=== PATIENT | female | born 1990 | race African-American/Black ===

== ENCOUNTER 2016-11-29 14:40 | Emergency (ER) | payer MEDICARE, OTHER ==
[~2016-11-29] VITALS: Ht 165.1 cm; Wt 70.0 kg
[~2016-11-29 14:40] MED LIST: IBUP-232 PO; PREN1CAP7 PO
[2016-11-29 14:42] VITALS: BP 124/70; PULSE 84; RESP 16; TEMP 98.2; O2SAT 95
[2016-11-29] MEDS ORDERED: LIDOCAINE 1%/EPINEPHrine 1:100,000 SOLN 20 ML VIAL INFIL ONE (15:45)
--- NOTE | 2016-11-29 16:30 | PD ---
HPI Chief Complaint: Foreign Body Time Seen by Provider: 15:28 Travel History International Travel<30 days: No Contact w/Intl Traveler<30days: No Traveled to known affect area: No History of Present Illness HPI 26-year-old female presents to the emergency room for evaluation of retained dermal piercing since this morning. Patient got her right lower abdominal wall pierced about 5 years ago and has had no problems until today. States it is irritating her and when she looked down she realized that the entire piercing had gone under her skin. She took off the outer portion but the packing remained inside her skin. Patient tried to remove it herself but was unable to. She came into have it removed because she is afraid it'll get infected. PFSH Past Medical History Diabetes: Yes (BORDERLINE ) Diminished Hearing: No Immunizations Current: Yes ?: Not : 2 Para: 0 Miscarriage: 1 Dilation and Curettage (D&C): Yes Past Surgical History Gynecologic Surgery: Yes (d & c ) Social History Alcohol Use: Yes (OCC) Tobacco Use: Yes (PPD) Substance Use: No Allergies-Medications (Allergen,Severity, Reaction): Coded Allergies: Latex (Verified Allergy, Mild, Rash, 11/29/16) Ultram (Verified Adverse Reaction, Intermediate, 11/29/16) Reported Meds & Prescriptions Reported Meds & Active Scripts Active Ibuprofen 600 Mg Tab 600 Mg PO TID PRN Citranatal Ball ( W/O Vit A W/ Fe Fumar) 27-1-260 Mg Cap 1 Cap PO DAILY Review of Systems Except as stated in HPI: all other systems reviewed are Neg Physical Exam Narrative GENERAL: Well-nourished, well-developed female in no acute distress. Afebrile. Ambulatory. SKIN: Warm and dry. There is a dermal piercing in the right lower anterior wall that is just below the skin. It is palpable. No evidence of infection. HEAD: Normocephalic. EYES: No scleral icterus. No injection or drainage. NECK: Supple, trachea midline. No JVD or lymphadenopathy. Data Data Last Documented VS Vital Signs Date Time Temp Pulse Resp B/P Pulse Ox O2 Delivery O2 Flow Rate FiO2 11/29/16 14:42 98.2 84 16 124/70 95 Room Air Orders Lidocai-Epi 1%-1:100,000 Inj (Xylocaine- (11/29/16 15:45) MDM Medical Decision Making Medical Screen Exam Complete: Yes Emergency Medical Condition: Yes Medical Record Reviewed: Yes Differential Diagnosis Foreign body versus piercing complication versus infection Narrative Course 26-year-old female presents to the emergency room for evaluation of retained foreign body in her right lower abdominal wall. Patient has had a dermal piercing there for 6 years but began to irritate her today. Came in to have it removed. Physical exam reveals dermal piercing back in the right lower anterior wall that is just below the skin. It is palpable. No evidence of infection. Foreign body was removed without difficulty. Wound was approximated with Steri-Strips. Patient told to follow up with PCP or return for worsening symptoms. He understands and agrees to plan. Procedures Procedure Narrative Foreign body removal: Patient given risks and benefits and told that procedure will cause a scar. She agreed to proceed. The area was prepped with Betadine. A subcutaneous wheal of 1% lidocaine with epinephrine with a total number 3 mL was used to anesthetize the area properly. A number 11 scalpel was used to make a 1 cm incision across the foreign body. It was grabbed and removed after some manipulation. Sterile dressing applied. Diagnosis Primary Impression: OTH FOREIGN BODY OR OBJECT ENTERING THROUGH SKIN, INIT Referrals: Primary Care Physician Patient Instructions: General Instructions, Soft Tissue Foreign Body (ED) Departure Forms: Tests/Procedures, Work Release Enter return to work date: Nov 30, 2016 Additional Instructions: Rest and drink plenty of fluids. Keep wound clean and dry. Take ibuprofen with food as directed, as needed for pain. Follow-up with a primary care physician. Return to the emergency room for worsening symptoms. Disposition: 01 DISCHARGE HOME Condition: Stable Rosetta Posada Nov 29, 2016 16:30
[2017-04-06] MEDS ORDERED: PROM12.54 PO (10:33)
[2017-05-18] MEDS ORDERED: TERC0.4C2 VAGINAL (15:21)
[2017-05-18] MEDS ORDERED: MICO1CRE2 VAGINAL (16:07)
== END 2016-11-29 16:40 | disposition home or self-care (01) ==
LOC: NEPB 14:40
DX: S30.851A Superficial foreign body of abdominal wall, initial encounter (principal); X58.XXXA Exposure to other specified factors, initial encounter
CPT/HCPCS: 10120

== ENCOUNTER 2016-12-14 08:11 | Emergency (ER) | payer MEDICARE, OTHER ==
[~2016-12-14] VITALS: Ht 165.1 cm; Wt 70.0 kg
[2016-12-14 08:15] VITALS: BP 118/75; PULSE 68; RESP 18; TEMP 97.8; O2SAT 99
[2016-12-14] MEDS ORDERED: SODIUM CHLOR 0.9% 1000 ML INJ 1,000 ML IV ONE (08:45)
[2016-12-14] MEDS ORDERED: ONDANSETRON HCL 4 MG/2 ML VIAL IV ONE (08:45)
[2016-12-14] MEDS ORDERED: ZOFR4TAB3 SL (09:06)
--- NOTE | 2016-12-14 09:06 | PD ---
HPI Chief Complaint: GI Complaint Time Seen by Provider: 08:31 Travel History International Travel<30 days: No Contact w/Intl Traveler<30days: No Traveled to known affect area: No History of Present Illness HPI 26 old woman presents to the emergency room complaining of nausea vomiting for the past 4 days. She'll set she feels lightheaded. She states she hears "static in my ears". Just states and vomiting she feels like her throat is swelling and closing up. No abdominal pain. No history of abdominal surgeries. Her last menstrual cycle was November 18. No definite sick contacts. 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 She wonders if that may be related. No other complaints. History Past Medical History Medical History: Denies Significant Hx Influenza Vaccination: Yes : 2 Para: 0 Dilation and Curettage (D&C): Yes Social History Alcohol Use: Yes (OCC) Tobacco Use: Yes (PP/3 days) Allergies-Medications (Allergen,Severity, Reaction): Coded Allergies: Latex (Verified Allergy, Mild, Rash, 12/14/16) Ultram (Verified Adverse Reaction, Intermediate, 12/14/16) Reported Meds & Prescriptions Reported Meds & Active Scripts Active Zofran Odt (Ondansetron Odt) 4 Mg Tab 4 Mg SL Q8HR PRN May substitute non-ODT form. Review of Systems Except as stated in HPI: all other systems reviewed are Neg Physical Exam Narrative GENERAL: Well-appearing 26 old woman, no acute distress. SKIN: Warm and dry. HEAD: Atraumatic. Normocephalic. HEENT: Normal throat. Normal neck. CARDIOVASCULAR: Regular rate and rhythm. No murmur appreciated. RESPIRATORY: No accessory muscle use. Clear to auscultation. Breath sounds equal bilaterally. GASTROINTESTINAL: Abdomen soft, non-tender, nondistended. Hepatic and splenic margins not palpable. MUSCULOSKELETAL: No obvious deformities. No edema. NEUROLOGICAL: Awake and alert. No obvious cranial nerve deficits. Motor grossly within normal limits. Normal speech. PSYCHIATRIC: Appropriate mood and affect; insight and judgment normal. Data Data Last Documented VS Vital Signs Date Time Temp Pulse Resp B/P Pulse Ox O2 Delivery O2 Flow Rate FiO2 12/14/16 08:15 97.8 68 18 118/75 99 Orders Urinalysis - C+S If Indicated (12/14/16 08:31) Ed Urine Pregnancytest Poc (12/14/16 08:31) Complete Blood Count With Diff (12/14/16 08:40) Comprehensive Metabolic Panel (12/14/16 08:40) Lipase (12/14/16 08:40) Iv Access Insert/Monitor (12/14/16 08:40) Sodium Chlor 0.9% 1000 Ml Inj (Ns 1000 M (12/14/16 08:45) Ondansetron Inj (Zofran Inj) (12/14/16 08:45) Labs Laboratory Tests Test 12/14/16 08:40 White Blood Count 6.1 TH/MM3 Red Blood Count 4.35 MIL/MM3 Hemoglobin 13.2 GM/DL Hematocrit 39.1 % Mean Corpuscular Volume 89.8 FL Mean Corpuscular Hemoglobin 30.4 PG Mean Corpuscular Hemoglobin 33.9 % Concent Red Cell Distribution Width 13.3 % Platelet Count 156 TH/MM3 Mean Platelet Volume 9.9 FL Neutrophils (%) (Auto) 53.7 % Lymphocytes (%) (Auto) 31.8 % Monocytes (%) (Auto) 12.9 % Eosinophils (%) (Auto) 1.1 % Basophils (%) (Auto) 0.5 % Neutrophils # (Auto) 3.3 TH/MM3 Lymphocytes # (Auto) 1.9 TH/MM3 Monocytes # (Auto) 0.8 TH/MM3 Eosinophils # (Auto) 0.1 TH/MM3 Basophils # (Auto) 0.0 TH/MM3 CBC Comment DIFF FINAL Differential Comment Urine Color YELLOW Urine Turbidity CLEAR Urine pH 6.5 Urine Specific [place] 1.025 Urine Protein NEG mg/dL Urine Glucose (UA) NEG mg/dL Urine Ketones NEG mg/dL Urine Occult Blood NEG Urine Nitrite NEG Urine Bilirubin NEG Urine Urobilinogen LESS THAN 2.0 MG/DL Urine Leukocyte Esterase NEG Urine RBC 1 /hpf Urine WBC 1 /hpf Urine Squamous Epithelial 1 /hpf Cells Urine Mucus FEW /lpf Microscopic Urinalysis Comment CULT NOT INDICATED Sodium Level 138 MEQ/L Potassium Level 3.4 MEQ/L Chloride Level 105 MEQ/L Carbon Dioxide Level 24.2 MEQ/L Anion Gap 9 MEQ/L Blood Urea Nitrogen 13 MG/DL Creatinine 0.68 MG/DL Estimat Glomerular Filtration 129 ML/MIN Rate Random Glucose 111 MG/DL Calcium Level 8.3 MG/DL Total Bilirubin 0.9 MG/DL Aspartate Amino Transf 13 U/L (AST/SGOT) Alanine Aminotransferase 19 U/L (ALT/SGPT) Alkaline Phosphatase 60 U/L Total Protein 7.3 GM/DL Albumin 3.6 GM/DL Lipase 182 U/L [facility] Medical Decision Making Medical Screen Exam Complete: Yes Emergency Medical Condition: Yes Interpretation(s) LABS: CBC is unremarkable. CMP is unremarkable. Lipase is unremarkable. UA negative Differential Diagnosis Gastritis, enteritis, , UTI, other Narrative Course Medical decision making This 26 old woman presents emergent department nausea vomiting feeling lightheaded. She looks fine. She is a benign exam. She thinks it may be chemicals from work. I don't see any evidence of anything dangerous. We'll check screening labs, supportive treatment. Diagnosis Primary Impression: Vomiting Qualified Code: R11.2 - Non-intractable vomiting with nausea, unspecified vomiting type Additional Instructions: Use Zofran as a for nausea or vomiting. Follow-up with her primary doctor in the next 2-4 days. Return emergent arm for any worsening abdominal pain, high fevers, or any other new or worsening symptoms. Med/Other Pt SpecificInfo: Prescription(s) given Scripts Ondansetron Odt (Zofran Odt)4 Mg Tab4 Mg SL Q8HR PRN (Nausea/Vomiting) #15 TAB May substitute non-ODT form. Prov:Alejandro Sharp MD 12/14/16 Disposition: 01 DISCHARGE HOME Condition: Stable Alejandro Sharp MD Dec 14, 2016 09:06
[2016-12-14 09:08] LABS: AUTOMATED NEUTROPHIL # 3.3 TH/MM3 (1.8-7.7); BASOPHIL % 0.5 % (0.0-2.0); EOSINOPHIL # 0.1 TH/MM3 (0-0.4); EOSINOPHIL % 1.1 % (0.0-4.0); HEMATOCRIT 39.1 % (35.0-46.0); HEMO FLAGS DIFF FINAL; LYMPH % 31.8 % (9.0-44.0); LYMPHOCYTE # 1.9 TH/MM3 (1.0-4.8); MEAN CELL VOLUME 89.8 FL (80.0-100.0); MEAN CORPUSCULAR HEMOGLOBIN 30.4 PG (27.0-34.0); MEAN CORPUSCULAR HGB CONC 33.9 % (32.0-36.0); MONO % 12.9 % (0.0-8.0); NEUT % 53.7 % (16.0-70.0); PLATELET COUNT 156 TH/MM3 (150-450); RED BLOOD COUNT 4.35 MIL/MM3 (4.00-5.30); RED CELL DISTRIBUTION WIDTH 13.3 % (11.6-17.2); WHITE BLOOD COUNT 6.1 TH/MM3 (4.0-11.0)
[2016-12-14 09:17] LABS: BLOOD, URINE NEG (NEG); GLUCOSE,URINE NEG (NEG); KETONE, URINE NEG (NEG); MUCUS URINE FEW /lpf (OCC); NITRITE,URINE NEG (NEG); PH, URINE 6.5 (5.0-8.5); SQUAMOUS EPITHELIAL CELL URINE 1 /hpf (0-5); URINE COLOR YELLOW (YELLW/STRAW)
[2016-12-14 09:18] LABS: COMMENT (UR) CULT NOT INDICATED; CULTURE IF INDICATED CULT NOT INDICATED
[2016-12-14 09:38] LABS: ANION GAP 9 MEQ/L (5-15); AST (GOT) 13 U/L (15-37); BICARBONATE 24.2 MEQ/L (21.0-32.0); BLOOD UREA NITROGEN 13 MG/DL (7-18); CHLORIDE 105 MEQ/L (98-107); GLOMERULAR FILTRATION RATE 129 ML/MIN (>89); POTASSIUM 3.4 MEQ/L (3.5-5.1); SODIUM (NA) 138 MEQ/L (136-145)
[2016-12-14 09:41] LABS: ALKALINE PHOSPHATASE 60 U/L (45-117); ALT (GPT) 19 U/L (10-53); TOTAL BILIRUBIN ADULT 0.9 MG/DL (0.2-1.0)
[2017-04-06] MEDS ORDERED: PROM12.54 PO (10:33)
[2017-05-18] MEDS ORDERED: TERC0.4C2 VAGINAL (15:21)
[2017-05-18] MEDS ORDERED: MICO1CRE2 VAGINAL (16:07)
== END 2016-12-14 10:11 | disposition home or self-care (01) ==
LOC: NEPC 08:11
DX: R11.2 Nausea with vomiting, unspecified (principal); F17.200 Nicotine dependence, unspecified, uncomplicated
CPT/HCPCS: 80053; 81001; 83690; 84703; 85025; 96361; 96374; 99284; J2405; J7030

== ENCOUNTER 2017-02-17 17:37 | Emergency (ER) | payer MEDICARE, OTHER ==
[~2017-02-17] VITALS: Ht 165.1 cm; Wt 70.0 kg
[~2017-02-17 17:37] MED LIST changes: -IBUP-232 PO; -PREN1CAP7 PO; +ZOFR4TAB3 SL
[2017-02-17 17:39] VITALS: BP 116/75; PULSE 77; RESP 16; TEMP 98.1; O2SAT 100
[2017-02-17 18:23] LABS: BACTERIA, URINE RARE /hpf; BLOOD, URINE NEG (NEG); GLUCOSE,URINE NEG (NEG); KETONE, URINE NEG (NEG); MUCUS URINE MOD /lpf (OCC); NITRITE,URINE NEG (NEG); PH, URINE 6.5 (5.0-8.5); SQUAMOUS EPITHELIAL CELL URINE 2 /hpf (0-5); URINE COLOR YELLOW (YELLW/STRAW)
[2017-02-17 18:26] LABS: COMMENT (UR) CULT NOT INDICATED; CULTURE IF INDICATED CULT NOT INDICATED
--- NOTE | 2017-02-17 19:20 | PD ---
HPI Chief Complaint: Abdominal Pain Time Seen by Provider: 19:15 Travel History International Travel<30 days: No Contact w/Intl Traveler<30days: No Traveled to known affect area: No History of Present Illness HPI 26-year-old female presents for evaluation of vaginal discharge. Symptoms started 1 week ago. Thick white vaginal discharge. She had some itching as well over the past few days. She has some burning sensation when she urinates. Denies abdominal pain, nausea or vomiting, flank pain, fevers or chills. She is sexually active with one partner, they do not use any sort of barrier contraception. No other complaints. PFSH Past Medical History Diabetes: Yes (BORDERLINE ) Diminished Hearing: No Immunizations Current: Yes ?: Not LMP: 01/17/2017 : 2 Para: 0 Miscarriage: 1 Dilation and Curettage (D&C): Yes Past Surgical History Gynecologic Surgery: Yes (d & c ) Social History Alcohol Use: No Tobacco Use: Yes Substance Use: No Allergies-Medications (Allergen,Severity, Reaction): Coded Allergies: Latex (Verified Allergy, Mild, Rash, 02/17/17) Ultram (Verified Adverse Reaction, Intermediate, 02/17/17) Reported Meds & Prescriptions Reported Meds & Active Scripts Active No Active Prescriptions or Reported Medications Review of Systems Except as stated in HPI: all other systems reviewed are Neg Physical Exam Narrative Examined in the presence of a female nurse GENERAL: Well-developed well-nourished female in no acute distress SKIN: Warm and dry. HEAD: Atraumatic. Normocephalic. EYES: Pupils equal and round. No scleral icterus. No injection or drainage. ENT: No nasal bleeding or discharge. Mucous membranes pink and moist. NECK: Trachea midline. No JVD. CARDIOVASCULAR: Regular rate and rhythm. No murmur appreciated. RESPIRATORY: No accessory muscle use. Clear to auscultation. Breath sounds equal bilaterally. GASTROINTESTINAL: Abdomen soft, non-tender, nondistended. Hepatic and splenic margins not palpable. Pelvic examination: Normal external genitalia. There is some white vaginal discharge. There is no cervical motion tenderness or adnexal tenderness or palpable masses. MUSCULOSKELETAL: No obvious deformities. No edema. NEUROLOGICAL: Awake and alert. No obvious cranial nerve deficits. Motor grossly within normal limits. Normal speech. Data Data Last Documented VS Vital Signs Date Time Temp Pulse Resp B/P Pulse Ox O2 Delivery O2 Flow Rate FiO2 02/17/17 17:39 98.1 77 16 116/75 100 Room Air Orders Urinalysis - C+S If Indicated (02/17/17 17:49) Ed Urine Pregnancytest Poc (02/17/17 17:49) Gc And Chlamydia Pcr (02/17/17 19:00) Wet Prep Profile (02/17/17 19:00) Azithromycin Powd Pack (Zithromax Powd P (02/17/17 19:30) Ceftriaxone Inj (Rocephin Inj) (02/17/17 19:30) Lidocaine 1% Inj (50 Ml) (Xylocaine 1% I (02/17/17 19:30) Labs Laboratory Tests Test 02/17/17 02/17/17 18:00 19:22 Urine Color YELLOW Urine Turbidity CLEAR Urine pH 6.5 Urine Specific [place] 1.025 Urine Protein TRACE mg/dL Urine Glucose (UA) NEG mg/dL Urine Ketones NEG mg/dL Urine Occult Blood NEG Urine Nitrite NEG Urine Bilirubin NEG Urine Urobilinogen LESS THAN 2.0 MG/DL Urine Leukocyte Esterase NEG Urine WBC 1 /hpf Urine Squamous Epithelial 2 /hpf Cells Urine Bacteria RARE /hpf Urine Mucus MOD /lpf Microscopic Urinalysis Comment CULT NOT INDICATED Clue Cells (Wet Prep) NONE SEEN Vaginal Trichomonas (Wet Prep) NONE SEEN Vaginal Yeast (Wet Prep) NONE SEEN MDM Medical Decision Making Medical Screen Exam Complete: Yes Emergency Medical Condition: Yes Medical Record Reviewed: Yes Differential Diagnosis Bacterial vaginosis, trichomoniasis, Candidial vaginitis, cervicitis, UTI, pelvic inflammatory disease Narrative Course 26-year-old female who has had vaginal discharge for one week as well as some itchiness over the past 2 days which comes and goes and some burning sensation when she urinates. Abdomen is soft and nontender. Urinalysis and urine tests are negative. Pelvic examination was performed. No cervical motion tenderness. Chlamydia and gonorrhea and wet prep tests have been ordered. The patient was empirically given Rocephin and azithromycin. Wet prep was negative. The patient's symptoms are suspicious for bacterial vaginosis so she'll be discharged with a 7 day course of Flagyl. Diagnosis Primary Impression: Vaginal discharge Additional Instructions: Medication as prescribed. Follow-up with primary care physician. Return for any emergent medical conditions. Med/Other Pt SpecificInfo: Prescription(s) given Scripts Metronidazole (Flagyl)500 Mg Fml274 Mg PO BID 7 Days Ref 0 Prov:Gilberto Montague MD 02/17/17 Disposition: 01 DISCHARGE HOME Condition: Stable Julio Florentino Feb 17, 2017 19:20
[2017-02-17] MEDS ORDERED: AZITHROMYCIN PWD FOR SUSP 1 GM PACKET PO ONE (19:30)
[2017-02-17] MEDS ORDERED: LIDOCAINE HCL 1% 50 ML VIAL IM ONE (19:30)
[2017-02-17] MEDS ORDERED: cefTRIAXone 250 MG VIAL IM ONE (19:30)
[2017-02-17] MEDS ORDERED: METR-1 PO (19:59)
[2017-02-17 20:07] VITALS: BP 112/72
[2017-02-17 22:42] LABS: CHLAMYDIA PCR NOT DETECTED (NOT DETECT); NEISSERIA PCR DETECTED (NOT DETECT)
[2017-04-06] MEDS ORDERED: PROM12.54 PO (10:33)
[2017-05-18] MEDS ORDERED: TERC0.4C2 VAGINAL (15:21)
[2017-05-18] MEDS ORDERED: MICO1CRE2 VAGINAL (16:07)
== END 2017-02-17 20:13 | disposition home or self-care (01) ==
LOC: NETRI 17:37
DX: N89.8 Other specified noninflammatory disorders of vagina (principal); L29.9 Pruritus, unspecified; R30.0 Dysuria; R73.03 Prediabetes; Z72.0 Tobacco use
CPT/HCPCS: 81001; 84703; 87210; 87491; 87591; 96372; 99283; J0696

== ENCOUNTER 2017-03-29 19:30 | Emergency (ER) | payer MEDICARE, OTHER ==
[~2017-03-29 19:30] MED LIST changes: +METR-1 PO; -ZOFR4TAB3 SL
[2017-03-29 19:31] VITALS: BP 128/77; PULSE 73; RESP 16; TEMP 98.6; O2SAT 99
[2017-04-06] MEDS ORDERED: PROM12.54 PO (10:33)
[2017-05-18] MEDS ORDERED: TERC0.4C2 VAGINAL (15:21)
[2017-05-18] MEDS ORDERED: MICO1CRE2 VAGINAL (16:07)
== END 2017-03-29 20:20 | disposition left against medical advice (07) ==
LOC: NED 19:30
DX: Z53.21 Procedure and treatment not carried out due to patient leaving prior to being seen by health care provider (principal)
CPT/HCPCS: 99281

== ENCOUNTER → 2017-04-08 | Outpatient (CLI) | payer MEDICARE, OTHER ==
[~2017-04-08] MED LIST changes: -METR-1 PO; +MICO1CRE2 VAGINAL; +PROM12.54 PO; +TERC0.4C2 VAGINAL
== END ==
LOC: HPND 13:08
PROVIDERS: ATTEND Obstetrics & Gynecology
DX: O36.80X0 Pregnancy with inconclusive fetal viability, not applicable or unspecified (principal)
CPT/HCPCS: 76801; 76817

== ENCOUNTER → 2017-04-22 | Outpatient (CLI) | payer MEDICARE, OTHER | LOC: HPND 13:26 | PROVIDERS: ATTEND Obstetrics & Gynecology | DX: O09.291 Supervision of pregnancy with other poor reproductive or obstetric history, first trimester (principal); Z3A.00 Weeks of gestation of pregnancy not specified | CPT/HCPCS: 76801 ==

== ENCOUNTER 2017-04-27 11:56 | Emergency (ER) | payer MEDICARE, OTHER ==
[~2017-04-27] VITALS: Ht 165.1 cm; Wt 70.0 kg
[~2017-04-27 11:56] MED LIST changes: -MICO1CRE2 VAGINAL; -TERC0.4C2 VAGINAL
[2017-04-27 11:58] VITALS: BP 110/54; PULSE 78; RESP 15; TEMP 97.8; O2SAT 99
--- NOTE | 2017-04-27 12:04 | PD ---
Physical Exam Date Seen by Provider: April 27, 2017 Time Seen by Provider: 12:01 Narrative 26 yo female here for evaluation of headache. Pounding headache since yesterday. Severe. 07/08. Feeling nauseous but no vomit. Some cough as well. No congestion. No fevers. No sick contacts. No vaginal discharge or bleeding. No abdominal pain. Patient is for 8 weeks. Vitals sign stable. Patient awaiting bed placement. Data Data Last Documented VS Vital Signs Date Time Temp Pulse Resp B/P Pulse Ox O2 Delivery O2 Flow Rate FiO2 04/27/17 11:58 97.8 78 15 110/54 99 MDM Medical Record Reviewed: Yes Supervised Visit with SACHIN: Tomy Gallo April 27, 2017 12:04
[2017-04-27] MEDS ORDERED: SODIUM CHLOR 0.9% 1000 ML INJ 1,000 ML IV ONE (12:16)
--- NOTE | 2017-04-27 12:20 | PD ---
HPI Chief Complaint: Headache Time Seen by Provider: 12:13 Travel History International Travel<30 days: No Contact w/Intl Traveler<30days: No Traveled to known affect area: No History of Present Illness HPI 26-year-old 8 weeks based on ultrasound presents for evaluation of headache. Symptoms started last night. She describes it as a pulsating frontal headache which is constant, no aggravating or alleviating factors. He endorses some nausea this morning as well as a cough since last night. The cough she notes was blood-tinged today which concerned her because of her . She does endorse a "raw" throat, feels like she is starting to get a sore throat. Denies nasal congestion, fevers or chills, chest pain or shortness of breath, abdominal pain, dysuria, vaginal bleeding or discharge, visual auras, blurred vision, photophobia. She has not tried using any over-the -counter medication for symptom relief. No other complaints. PFSH Past Medical History Diabetes: Yes (BORDERLINE ) Diminished Hearing: No Immunizations Current: Yes ?: : 2 Para: 0 Miscarriage: 1 Dilation and Curettage (D&C): Yes Past Surgical History Gynecologic Surgery: Yes (d & c ) Social History Alcohol Use: No Tobacco Use: Yes Substance Use: No Allergies-Medications (Allergen,Severity, Reaction): Coded Allergies: Latex (Verified Allergy, Mild, Rash, 04/27/17) Ultram (Verified Adverse Reaction, Intermediate, 04/27/17) Reported Meds & Prescriptions Reported Meds & Active Scripts Active Promethazine (Promethazine HCl) 12.5 Mg Tab 12.5 Mg PO Q6H PRN Review of Systems Except as stated in HPI: all other systems reviewed are Neg Physical Exam Narrative GENERAL: Well-developed well-nourished female in no acute distress resting comfortably on hospital bed. SKIN: Warm and dry. HEAD: Atraumatic. Normocephalic. EYES: Pupils equal and round reactive to light extraocular muscles are intact. No scleral icterus. No injection or drainage. ENT: No nasal bleeding or discharge. Mucous membranes pink and moist. No oral pharyngeal erythema or exudate. NECK: Trachea midline. No JVD. Neck supple with Full range of motion. No lymphadenopathy. CARDIOVASCULAR: Regular rate and rhythm. No murmur appreciated. RESPIRATORY: No accessory muscle use. Clear to auscultation. Breath sounds equal bilaterally. GASTROINTESTINAL: Abdomen soft, non-tender, nondistended. Hepatic and splenic margins not palpable. MUSCULOSKELETAL: No obvious deformities. No edema. NEUROLOGICAL: Awake and alert. No obvious cranial nerve deficits. Motor grossly within normal limits. Normal speech. PSYCHIATRIC: Appropriate mood and affect; insight and judgment normal. Data Data Last Documented VS Vital Signs Date Time Temp Pulse Resp B/P Pulse Ox O2 Delivery O2 Flow Rate FiO2 04/27/17 11:58 97.8 78 15 110/54 99 Orders Iv Access Insert/Monitor (04/27/17 12:16) Acetaminophen (Tylenol) (04/27/17 12:30) Diphenhydramine Inj (Benadryl Inj) (04/27/17 12:30) Metoclopramide Inj (Reglan Inj) (04/27/17 12:30) Sodium Chlor 0.9% 1000 Ml Inj (Ns 1000 M (04/27/17 12:16) Group A Rapid Strep Screen (04/27/17 12:16) Strep Culture (Group A) (04/27/17 12:20) [facility] Medical Decision Making Medical Screen Exam Complete: Yes Emergency Medical Condition: Yes Medical Record Reviewed: Yes Differential Diagnosis Tension headache, cluster headache, migraine without aura, pseudotumor cerebri, preeclampsia, intracranial hemorrhage Narrative Course 26-year-old female currently 8 weeks presents with one-day history of headache. She is not using any [id number] medications for symptom relief. She endorses a cough,"raw throat" since yesterday, some blood tinged sputum. Physical examination is very reassuring. She has no neurologic deficits. Lungs sound clear. She is not tachycardic. She has no chest pain or shortness of breath to suggest a pulmonary embolism. No evidence of DVT. I suspect a benign headache. Plan is for symptom relief with IV fluids, Benadryl , Reglan, Tylenol. Rapid strep screen has been ordered as well. Rapid strep is negative. Upon reexamination the patient's symptoms have resolved. She is stable for discharge, outpatient follow-up with her LO[employer]ER. Diagnosis Primary Impression: Headache Qualified Code: R51 - Acute nonintractable headache, unspecified headache type Additional Instructions: Follow-up with your [employer]. Return for any emergent medical conditions. Med/Other Pt SpecificInfo: No Change to Meds Disposition: 01 DISCHARGE HOME Condition: Stable Julio Florentino April 27, 2017 12:20
[2017-04-27] MEDS ORDERED: diphenhydrAMINE HCL 50 MG/ML VIAL IVP ONE (12:30)
[2017-04-27] MEDS ORDERED: ACETAMINOPHEN 325 MG TAB PO ONE (12:30)
[2017-04-27] MEDS ORDERED: METOCLOPRAMIDE HCL 10 MG/2 ML VIAL IVP ONE (12:30)
--- NOTE | 2017-04-27 13:15 | PD ---
Data Data Last Documented VS Vital Signs Date Time Temp Pulse Resp B/P Pulse Ox O2 Delivery O2 Flow Rate FiO2 04/27/17 11:58 97.8 78 15 110/54 99 Orders Iv Access Insert/Monitor (04/27/17 12:16) Acetaminophen (Tylenol) (04/27/17 12:30) Diphenhydramine Inj (Benadryl Inj) (04/27/17 12:30) Metoclopramide Inj (Reglan Inj) (04/27/17 12:30) Sodium Chlor 0.9% 1000 Ml Inj (Ns 1000 M (04/27/17 12:16) Group A Rapid Strep Screen (04/27/17 12:16) Strep Culture (Group A) (04/27/17 12:20) MDM Supervised Visit with SACHIN: Yes Narrative Course I, Dr. Montiel, have reviewed the advance practice practioner's documentation and am in agreement, met with the patient face to face, made the diagnosis, and the medical decision making was done by me. *My assessment and Findings: 30-year-old female with history of headaches here with complaint of same. Frontal headache, gradual in onset, with associated nausea. She's also had a sore throat and cough. She happens to be approximately 8 weeks . No abnormal vaginal bleeding, discharge, abdominal pain. Physical examination is unremarkable, GCS 15, cranial nerves intact, nonfocal neuro exam. She does have minimal posterior pharyngeal erythema, no nuchal rigidity. Rectal includes headache, tension headache, cluster headache, migraine headache. Patient is not far enough along to consider preeclampsia. She has some mild pharyngeal erythema bacterial versus viral pharyngitis. Strep test here was negative. She was given symptomatic management with improvement of her headache and is requesting discharge to home. Shannon Montiel MD April 27, 2017 13:15
[2017-04-27 13:35] VITALS: RESP 16
[2017-05-18] MEDS ORDERED: TERC0.4C2 VAGINAL (15:21)
[2017-05-18] MEDS ORDERED: MICO1CRE2 VAGINAL (16:07)
[2017-06-03] MEDS ORDERED: PNV11TAB PO (07:29)
== END 2017-04-27 13:39 | disposition home or self-care (01) ==
LOC: NEPD 11:56
DX: O99.89 Other specified diseases and conditions complicating pregnancy, childbirth and the puerperium (principal); R51 Headache; R11.0 Nausea; R05 Cough; R07.0 Pain in throat; R73.03 Prediabetes; Z72.0 Tobacco use; Z3A.08 8 weeks gestation of pregnancy
CPT/HCPCS: 87081; 87880; 96361; 96374; 96375; 99284; J1200; J2765; J7030

== ENCOUNTER → 2017-05-26 | Outpatient (CLI) | payer MEDICARE, OTHER ==
[~2017-05-26] MED LIST changes: +MICO1CRE2 VAGINAL; +PNV11TAB PO; +TERC0.4C2 VAGINAL
== END ==
LOC: HPND 11:56
PROVIDERS: ATTEND Obstetrics & Gynecology
DX: O09.211 Supervision of pregnancy with history of pre-term labor, first trimester (principal); O09.291 Supervision of pregnancy with other poor reproductive or obstetric history, first trimester
CPT/HCPCS: 36416; 76813

== ENCOUNTER → 2017-06-03 | Day surgery (SDC) | payer MEDICARE, OTHER ==
--- NOTE | 2017-06-02 11:03 | MH ---
cc: MICHELLE MAURICIO MD DATE OF ADMISSION: 06/03/2017 REASON FOR ADMISSION Treatment of cervical incompetence. HISTORY OF PRESENT ILLNESS The patient is well-known to our practice. She has had two previous demises, one at 18 weeks and one at 20 weeks. At the last she was advised that with any future pregnancies she should have cervical cerclage placement. When we saw her we sent her to maternal medicine who concurred with this diagnosis of cervical incompetence and advised early cerclage at approximately 13 weeks. We then discussed the findings with the patient, discussed the risks and the procedure at length, and the patient was scheduled. PAST MEDICAL HISTORY The patient has had a significant amount of nausea and vomiting with this and she is presently on promethazine. ALLERGIES 1. LATEX. 2. ULTRAM. PAST SURGICAL HISTORY Essentially noncontributory. REVIEW OF SYSTEMS Negative. PHYSICAL EXAMINATION GENERAL: The patient was seen well-developed and well-nourished in no acute distress. VITAL SIGNS: Blood pressure 122/72, pulse 70, respirations 12. HEENT: Negative. CHEST: Clear to auscultation. CARDIOVASCULAR: Regular rate. ABDOMEN: Soft. Bowel sounds positive. PELVIC: The uterus is approximately 13 weeks in size. The cervix is closed. There are no adnexal masses palpable. EXTREMITIES: No clubbing, cyanosis or edema. NEUROPSYCHIATRIC: The patient is oriented x3 and showed no gross neurocranial deficit. IMPRESSION Impression on admission is cervical incompetence. PLAN The plan is for a cerclage. MD ALIREZA FitzgeraldG/BT /10:36 AM /10:51 AM
[~2017-06-03] VITALS: Ht 165.1 cm; Wt 71.9 kg
[~2017-06-03] MED LIST changes: +*ONDANSETRON 4 MG VIAL PERIprocedural Use ONLY ONE; +ACETAMINOPHEN/HYDROcodone 325 MG/5 MG TAB ONE; +ACETAMINOPHEN/HYDROcodone 325 MG/5 MG TAB PO ONE; +CHLORHEXIDINE GLUCONATE 2 % 1 PACK (2 CLOTHS) TOPICAL PRN; +DO NOT ADM ANY ANTICOAGULANT DRUGS PRN; +FAMOTIDINE 20 MG/2 ML VIAL ONE; +INSULIN HUMAN REGULAR 1,000 UNITS/10 ML VIAL SQ PRN; +LACTATED RINGER'S 1000 ML IV PRN; +METOPROLOL TARTRATE 25 MG TAB PO PRN; +POVIDONE IODINE 5% (ANTISEPSIS KIT) 4 APPLICATIONS EACH NARE PRN; +PROPOFOL 200 MG/20 ML AMP IV ONE; +SODIUM CHLORID 0.9% 500 ML IV PRN; +ceFAZolin 2 GM PREMIX 50 ML IV SCH
[2017-06-03 07:20] VITALS: BP 103/54; PULSE 71; RESP 18; TEMP 97.6; O2SAT 98
[2017-06-03 10:00] VITALS: BP 104/62; PULSE 53; RESP 18; TEMP 97.7; O2SAT 99
--- NOTE | 2017-06-03 19:59 | MP ---
cc: MICHELLE DYER MD DATE OF SURGERY: 06/03/2017 PREOPERATIVE DIAGNOSIS Cervical incompetence. POSTOPERATIVE DIAGNOSIS Cervical incompetence. OPERATION Cervical cerclage. SURGEON Dr. Dyer. ANESTHESIA Spinal. ESTIMATED BLOOD LOSS Minimal. FINDINGS None. COMPLICATIONS None. 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 PROCEDURE The patient prepped and draped in dorsal lithotomy position. A weighted speculum was placed in the posterior vaginal vault. A #1 Prolene suture was placed at the 12 o'clock position and then placed circumferentially around the cervix and then tied again at the 12 o'clock position. Another suture using 1 nylon was again placed in a circumferential manner starting at the 12 o'clock position and then again at the 12 o'clock position and the suture was then tied after which the weighted speculum was then removed, and then the patient returned to Recovery Room in stable condition. MD BRO Fitzgerald/BJF /9:14 AM /7:48 PM
== END | disposition home or self-care (01) ==
LOC: HSDC 06:55
PROVIDERS: ATTEND Obstetrics & Gynecology
DX: N88.3 Incompetence of cervix uteri (principal)
CPT/HCPCS: 00948; 59320; J0690; J2405; J3010; J7120

== ENCOUNTER 2017-11-11 08:28 | Emergency (ER) | payer MEDICARE, OTHER ==
[~2017-11-11] VITALS: Ht 167.6 cm; Wt 68.0 kg
[~2017-11-11 08:28] MED LIST changes: -*ONDANSETRON 4 MG VIAL PERIprocedural Use ONLY ONE; -ACETAMINOPHEN/HYDROcodone 325 MG/5 MG TAB ONE; -ACETAMINOPHEN/HYDROcodone 325 MG/5 MG TAB PO ONE; -CHLORHEXIDINE GLUCONATE 2 % 1 PACK (2 CLOTHS) TOPICAL PRN; -DO NOT ADM ANY ANTICOAGULANT DRUGS PRN; -FAMOTIDINE 20 MG/2 ML VIAL ONE; -INSULIN HUMAN REGULAR 1,000 UNITS/10 ML VIAL SQ PRN; -LACTATED RINGER'S 1000 ML IV PRN; -METOPROLOL TARTRATE 25 MG TAB PO PRN; -MICO1CRE2 VAGINAL; -POVIDONE IODINE 5% (ANTISEPSIS KIT) 4 APPLICATIONS EACH NARE PRN; -PROM12.54 PO; -PROPOFOL 200 MG/20 ML AMP IV ONE; -SODIUM CHLORID 0.9% 500 ML IV PRN; -TERC0.4C2 VAGINAL; -ceFAZolin 2 GM PREMIX 50 ML IV SCH
[2017-11-11 08:30] VITALS: BP 113/64; PULSE 55; RESP 17; TEMP 97.7; O2SAT 99
--- NOTE | 2017-11-11 09:30 | PD ---
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 27-year- old female presents to the emergency Department with complaint of headache 2 weeks. Denies history of headaches. I was unable to obtain any more information about the headache secondary to patient leaving prior to completion of history of present illness. She is also complaining of lower abdominal pain and back pain, but denies having abdominal pain or back pain at this time. She is also complaining of vaginal discharge that she had 2-3 weeks ago, but does not have vaginal discharge or odor at this time. She says she is trying to conceive and doesn't know if she is . I told the patient her UPT was negative. She wants to be checked for STD/STI. She denies dysuria. I was unable to obtain any more information secondary to the patient becoming agitated and leaving. PFSH Past Medical History Diabetes: Yes (BORDERLINE ) Diminished Hearing: No Immunizations Current: Yes Thyroid Disease: Yes (problems in past) Tetanus Vaccination: < 5 Years ?: Unknown LMP: UNSURE : 3 Para: 0 Miscarriage: 2 Dilation and Curettage (D&C): Yes Past Surgical History Body Medical Devices: jewlry on face and hip Gynecologic Surgery: Yes (d & c ) Social History Alcohol Use: Yes (OCC) Tobacco Use: Yes Substance Use: No Allergies-Medications (Allergen,Severity, Reaction): Coded Allergies: latex (Unverified Allergy, Mild, Rash, 11/11/17) tramadol (Unverified Adverse Reaction, Intermediate, 11/11/17) Reported Meds & Prescriptions Reported Meds & Active Scripts Active Reported Gummies ([id number]/FA/Omega3/Dha/Fish Oil) 1 Each Tab.chew 1 Mg PO DAILY Review of Systems ROS Limitations: Other: (patient left AMA prior to complete ROS obtained) Physical Exam Narrative GENERAL: Well-nourished, well-developed black female patient, in no acute distress; afebrile, nontoxic-appearing SKIN: Warm and dry. HEAD: Atraumatic. Normocephalic. EYES: Pupils equal and round. No scleral icterus. No injection or drainage. ENT: Mucosa pink and moist. Airway patent. NECK: Trachea midline. CARDIOVASCULAR: Regular rate. RESPIRATORY: No accessory muscle use. GASTROINTESTINAL: Flat. MUSCULOSKELETAL: No obvious deformities. No clubbing. No cyanosis. No edema. NEUROLOGICAL: Awake and alert. Oriented 3. No obvious cranial nerve deficits. Motor grossly within normal limits. Normal speech. PSYCHIATRIC: Appropriate mood and affect; insight and judgment normal. Data Data Last Documented VS Vital Signs Date Time Temp Pulse Resp B/P (MAP) Pulse Ox O2 Delivery O2 Flow Rate FiO2 11/11/17 09:15 18 11/11/17 08:30 97.7 55 113/64 (80) 99 Room Air Orders Orders Urinalysis - C+S If Indicated (11/11/17 08:36) Ed Urine Pregnancytest Poc (11/11/17 08:36) Gc And Chlamydia Pcr (11/11/17 09:19) Wet Prep Profile (11/11/17 09:19) Labs Laboratory Tests Test 11/11/17 09:20 Urine Color YELLOW Urine Turbidity CLEAR Urine pH 6.5 Urine Specific [place] 1.023 Urine Protein NEG mg/dL Urine Glucose (UA) NEG mg/dL Urine Ketones NEG mg/dL Urine Occult Blood NEG Urine Nitrite NEG Urine Bilirubin NEG Urine Urobilinogen LESS THAN 2.0 MG/DL Urine Leukocyte Esterase TRACE Urine WBC 3 /hpf Urine Squamous Epithelial Cells 2 /hpf Urine Mucus FEW /lpf Microscopic Urinalysis Comment CULT NOT INDICATED MDM Medical Decision Making Medical Screen Exam Complete: Yes Emergency Medical Condition: Yes Medical Record Reviewed: Yes Differential Diagnosis Cephalgia, low back pain, UTI, pyelonephritis, Narrative Course 27-year-old female with limited history of present illness, ROS, physical exam secondary to patient becoming agitated and leaving AMA. I made multiple attempts to address her headache, low back pain, abdominal pain and she became more agitated and started cussing, so I walked out of the room and the patient left AMA. UPT negative and the patient was told the results prior to leaving. Urinalysis was ordered in triage and is negative for infection. AMA: The risks of leaving against medical advice without further evaluation treatment were discussed with the patient. These risks include cardiac dysfunction, cardiac dysrhythmia, possible heart attack, possible stroke or . The patient indicated understanding of these risks and appeared to have the capacity to make this decision. Diagnosis Primary Impression: Left against medical advice Disposition: 07 AGAINST MEDICAL ADVICE Tamra Sandoval Nov 11, 2017 09:30
[2017-11-11 09:37] LABS: BILIRUBIN, URINE NEG (NEG); BLOOD, URINE NEG (NEG); GLUCOSE,URINE NEG (NEG); KETONE, URINE NEG (NEG); MUCUS URINE FEW /lpf (OCC); NITRITE,URINE NEG (NEG); PH, URINE 6.5 (5.0-8.5); SQUAMOUS EPITHELIAL CELL URINE 2 /hpf (0-5); URINE COLOR YELLOW (YELLW/STRAW); URINE LEUKOCYTE ESTERASE TRACE (NEG)
== END 2017-11-11 09:47 | disposition left against medical advice (07) ==
LOC: NEPD 08:28
DX: R51 Headache (principal); R10.9 Unspecified abdominal pain
CPT/HCPCS: 81001; 84703; 87491; 87591; 99284

== ENCOUNTER 2017-11-25 11:09 | Emergency (ER) | payer MEDICARE, OTHER ==
[2017-11-25 11:10] VITALS: BP 111/76; PULSE 81; RESP 16; TEMP 98.2; O2SAT 99
--- NOTE | 2017-11-25 11:42 | PD ---
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 Patient says this has been going on for past 2 weeks and she was in the emergency room 2 weeks ago where urine was sent for GC chlamydia. Patient said she left and was called later to the notified that she was positive for chlamydia. She was prescribed to blue pill that was called to the pharmacy from the emergency room which patient took. However as per her symptoms persist. Meanwhile one week ago patient found out that she is . Patient is a high risk since all her previous was lost due to incompetent os. Patient is A3. Her last miscarriage was in May of this year when she carried the for 5 months. In spite of her getting the cerclage. Vital signs are stable. Currently no pelvic cramps or spotting. No history of dysuria. Patient says she has not had unprotected sex since 2 weeks ago. Last menstrual period was October 23, 2017. The bedside urine was positive. PFSH Past Medical History Narrative Medical List of her past medical, surgical, social and family history is reviewed from the nursing note. Diabetes: Yes (BORDERLINE ) Diminished Hearing: No Immunizations Current: Yes Thyroid Disease: Yes (problems in past) ?: : 3 Para: 0 Miscarriage: 2 Dilation and Curettage (D&C): Yes Past Surgical History Body Medical Devices: jewlry on face and hip Gynecologic Surgery: Yes (d & c ) Social History Alcohol Use: Yes (OCC) Tobacco Use: Yes Substance Use: No Allergies-Medications (Allergen,Severity, Reaction): Coded Allergies: latex (Unverified Allergy, Mild, Rash, 11/25/17) tramadol (Unverified Adverse Reaction, Intermediate, 11/25/17) Comments List of her allergies reviewed from the nursing note. Reported Meds & Prescriptions Reported Meds & Active Scripts Active Duty Manager-Ch-Pnv Softgel ( 34/Iron/Folic/Dss/Dha) 30 Mg Iron-1 Mg-50 Mg-260 Mg Capsule 1 Tab PO DAILY 30 Days Reported Gummies ([id number]/FA/Omega3/Dha/Fish Oil) 1 Each Tab.chew 1 Mg PO DAILY Narrative Medication List of her home medications reviewed from the nursing note. Review of Systems Except as stated in HPI: all other systems reviewed are Neg Genitourinary: Positive: Pelvic Pain, Discharge Physical Exam Narrative GENERAL: Awake, alert, mild distress SKIN: Focused skin assessment warm/dry. HEAD: Atraumatic. Normocephalic. EYES: Pupils equal and round. No scleral icterus. No injection or drainage. ENT: No nasal bleeding or discharge. Mucous membranes pink and moist. NECK: Trachea midline. No JVD. CARDIOVASCULAR: Regular rate and rhythm. No murmur appreciated. RESPIRATORY: No accessory muscle use. Clear to auscultation. Breath sounds equal bilaterally. GASTROINTESTINAL: Abdomen soft, non-tender, nondistended. Hepatic and splenic margins not palpable. : Pelvic exam was done which did not show any significantly abnormal vaginal discharge. No lesions were noticed. The os was difficult to be identified since it was pretty high up and patient was uncomfortable. MUSCULOSKELETAL: No obvious deformities. No clubbing. No cyanosis. No edema. NEUROLOGICAL: Awake and alert. No obvious cranial nerve deficits. Motor grossly within normal limits. Normal speech. PSYCHIATRIC: Appropriate mood and affect; insight and judgment normal. Data Data Last Documented VS Vital Signs Date Time Temp Pulse Resp B/P (MAP) Pulse Ox O2 Delivery O2 Flow Rate FiO2 11/25/17 13:33 78 18 114/72 (86) 99 11/25/17 11:10 98.2 Orders Orders Gc And Chlamydia Pcr (11/25/17 11:46) Wet Prep Profile (11/25/17 11:46) Ua Includes Microscopic (11/25/17 11:46) Ed Urine Pregnancytest Poc (11/25/17 11:46) Metronidazole (Flagyl) (11/25/17 13:15) Ceftriaxone Inj (Rocephin Inj) (11/25/17 13:15) Lidocaine 1% Inj (50 Ml) (Xylocaine 1% I (11/25/17 13:15) Ed Discharge Order (11/25/17 13:01) Labs Laboratory Tests Test 11/25/17 11:50 Urine Color YELLOW Urine Turbidity CLEAR Urine pH 7.0 Urine Specific [place] 1.020 Urine Protein NEG mg/dL Urine Glucose (UA) NEG mg/dL Urine Ketones NEG mg/dL Urine Occult Blood NEG Urine Nitrite NEG Urine Bilirubin NEG Urine Urobilinogen LESS THAN 2.0 MG/DL Urine Leukocyte Esterase NEG Urine RBC LESS THAN 1 /hpf Urine WBC 1 /hpf Urine Squamous Epithelial Cells <1 /hpf Urine Mucus FEW /lpf Clue Cells (Wet Prep) PRESENT Vaginal Trichomonas (Wet Prep) NONE SEEN Vaginal Yeast (Wet Prep) NONE SEEN Chlamydia trachomatis DNA (PCR) NOT DETECTED Neisseria gonorrhoeae DNA (PCR) NOT DETECTED MDM Medical Decision Making Medical Screen Exam Complete: Yes Emergency Medical Condition: Yes Medical Record Reviewed: Yes Differential Diagnosis STD, first trimester Narrative Course The wet mount showed clue cells but Flagyl is contraindicated in first trimester . GC and chlamydia is pending but I went ahead and gave her a shot of Rocephin given her previous STD history. Patient will be discharged home. She needs to follow up with her OB and she says she has an appointment on the 15th of next month. Diagnosis Primary Impression: First trimester Additional Impression: Pelvic pain during Referrals: Primary Care Physician Additional Instructions: Please follow-up with your OB as soon as possible for the and other related issues. Return to the ER if condition worsens or any other new concerns. Drink lots of fluid and take the vitamins prescribed to you. Med/Other Pt SpecificInfo: Prescription(s) given Scripts 34/Iron/Folic/Dss/Dha (Duty Manager-Ch-Pnv Softgel) 30 Mg Iron-1 Mg-50 Mg-260 Mg Capsule 1 TAB PO DAILY for 30 Days Prov: Trina Walters MD 11/25/17 Disposition: 01 DISCHARGE HOME Condition: Stable Trina Walters MD Nov 25, 2017 11:42
[2017-11-25 12:31] LABS: BILIRUBIN, URINE NEG (NEG); BLOOD, URINE NEG (NEG); GLUCOSE,URINE NEG (NEG); KETONE, URINE NEG (NEG); MUCUS URINE FEW /lpf (OCC); NITRITE,URINE NEG (NEG); SQUAMOUS EPITHELIAL CELL URINE <1 /hpf (0-5); URINE COLOR YELLOW (YELLW/STRAW); URINE LEUKOCYTE ESTERASE NEG (NEG)
[2017-11-25] MEDS ORDERED: PREN1CAP PO (13:05)
[2017-11-25] MEDS ORDERED: LIDOCAINE HCL 1% 50 ML VIAL IM ONE (13:15)
[2017-11-25] MEDS ORDERED: metroNIDAZOLE 500 MG TAB PO ONE (13:15)
[2017-11-25] MEDS ORDERED: cefTRIAXone 250 MG VIAL IM ONE (13:15)
[2017-11-25 13:33] VITALS: BP 114/72
== END 2017-11-25 13:33 | disposition home or self-care (01) ==
LOC: NEPD 11:09
DX: O26.891 Other specified pregnancy related conditions, first trimester (principal); R10.2 Pelvic and perineal pain; Z3A.00 Weeks of gestation of pregnancy not specified
CPT/HCPCS: 81001; 84703; 87210; 87491; 87591; 96372; 99283; J0696

== ENCOUNTER 2018-01-03 09:00 | Emergency (ER) | payer MEDICARE, OTHER ==
[~2018-01-03] VITALS: Ht 165.1 cm; Wt 65.0 kg
[~2018-01-03 09:00] MED LIST changes: +PREN1CAP PO
[2018-01-03 09:02] VITALS: BP 116/61; PULSE 82; RESP 18; TEMP 98.1; O2SAT 100
[2018-01-03] MEDS ORDERED: ACYC400T PO (09:28)
[2018-01-03 09:36] VITALS: BP 118/61; PULSE 72; RESP 18; O2SAT 98
[2018-01-03 10:46] LABS: AUTOMATED NEUTROPHIL # 8.6 TH/MM3 (1.8-7.7); BASOPHIL % 0.4 % (0.0-2.0); EOSINOPHIL % 0.3 % (0.0-4.0); HEMATOCRIT 39.3 % (35.0-46.0); HEMOGLOBIN 13.9 GM/DL (11.6-15.3); LYMPH % 13.1 % (9.0-44.0); LYMPHOCYTE # 1.4 TH/MM3 (1.0-4.8); MEAN CELL VOLUME 91.9 FL (80.0-100.0); MEAN CORPUSCULAR HEMOGLOBIN 32.5 PG (27.0-34.0); MEAN CORPUSCULAR HGB CONC 35.4 % (32.0-36.0); MEAN PLATELET VOLUME 9.4 FL (7.0-11.0); MONO % 7.6 % (0.0-8.0); MONOCYTE # 0.8 TH/MM3 (0-0.9); NEUT % 78.6 % (16.0-70.0); PLATELET COUNT 175 TH/MM3 (150-450); RED BLOOD COUNT 4.28 MIL/MM3 (4.00-5.30); RED CELL DISTRIBUTION WIDTH 11.8 % (11.6-17.2); WHITE BLOOD COUNT 10.9 TH/MM3 (4.0-11.0)
[2018-01-03 10:53] LABS: BILIRUBIN, URINE NEG (NEG); BLOOD, URINE NEG (NEG); GLUCOSE,URINE NEG (NEG); KETONE, URINE 40 mg/dL (NEG); MUCUS URINE FEW /lpf (OCC); NITRITE,URINE NEG (NEG); PH, URINE 6.5 (5.0-8.5); SQUAMOUS EPITHELIAL CELL URINE 3 /hpf (0-5); URINE COLOR YELLOW (YELLW/STRAW); URINE LEUKOCYTE ESTERASE TRACE (NEG)
[2018-01-03 11:58] LABS: MONOCYTES 4 % (0-8); NEUTROPHIL # MANUAL DIFF 8.5 TH/MM3 (1.8-7.7); POLYS (SEG NEUTROPHILS) 78 % (16-70)
[2018-01-03 12:02] LABS: LYMPHOCYTES 17 % (9-44)
[2018-01-03 12:03] LABS: TOXIC VACUOLATION PRESENT (NONE SEEN)
[2018-01-03] MEDS ORDERED: MACR100C2 PO (12:50)
[2018-01-03] MEDS ORDERED: PREN1CAP PO (12:50)
--- NOTE | 2018-01-03 12:57 | PD ---
HPI Chief Complaint: Related Problem Time Seen by Provider: 10:16 Travel History International Travel<30 days: No Contact w/Intl Traveler<30days: No Traveled to known affect area: No History of Present Illness HPI 27-year-old female who presents today with complaints of vaginal spotting and pain in her left flank. Patient states that she is 11-13 weeks . She denies any passage of tissue. She reports that when she urinates, she notes that there is some blood tinge on her toilet paper. The patient has had previous miscarriages 2. She states that she has an incompetent cervix. She is concerned that she is having a miscarriage at this time. There is no reported fevers, chills. There is no nausea vomiting diarrhea. There are no other complaints at the time of my examination. PFSH Past Medical History Cancer: No Cardiovascular Problems: No Diabetes: No Diminished Hearing: No Endocrine: No Gastrointestinal Disorders: No Genitourinary: No Hepatitis: No Hiatal Hernia: No Hypertension: No Immune Disorder: No Musculoskeletal: No Neurologic: No Psychiatric: No Respiratory: No Immunizations Current: Yes Thyroid Disease: Yes (problems in past) ?: LMP: 10/23/17 : 4 Para: 0 Miscarriage: 3 Dilation and Curettage (D&C): Yes Past Surgical History Body Medical Devices: jewlry on face and hip Gynecologic Surgery: Yes (d & c X 1) Social History Alcohol Use: Yes (WINE) Tobacco Use: No Substance Use: No Allergies-Medications (Allergen,Severity, Reaction): Coded Allergies: latex (Unverified Allergy, Mild, Rash, 01/03/18) tramadol (Unverified Adverse Reaction, Intermediate, 01/03/18) Reported Meds & Prescriptions Reported Meds & Active Scripts Active Macrobid (Nitrofurantoin Monohydrate Macrocrystals) 100 Mg Capsule 100 Mg PO BID 5 Days Public Information Director-Ch-Pnv Softgel ( 34/Iron/Folic/Dss/Dha) 30 Mg Iron-1 Mg-50 Mg-260 Mg Capsule 1 Tab PO DAILY 30 Days Reported Acyclovir 400 Mg Tab Unknown Dose PO DIRECTED Review of Systems Except as stated in HPI: all other systems reviewed are Neg General / Constitutional: No: Fever, Chills HENT: No: Headaches, Neck Pain Cardiovascular: No: Chest Pain or Discomfort, Palpitations Respiratory: No: Cough, Shortness of Breath Gastrointestinal: No: Nausea, Vomiting, Diarrhea, Abdominal Pain Genitourinary: Positive: Other, No: Urgency, Frequency, Dysuria, Pelvic Pain, Discharge (Spotting.) Musculoskeletal: Positive: Pain (Left flank), No: Weakness Physical Exam Narrative GENERAL: Well-nourished, well-developed patient, in no acute distress.. SKIN: Focused skin assessment warm/dry. HEAD: Normocephalic/atraumatic. EYES: No scleral icterus. No injection or drainage. NECK: Supple, trachea midline. No JVD or lymphadenopathy. CARDIOVASCULAR: Regular rate and rhythm without murmurs, gallops, or rubs. RESPIRATORY: Breath sounds equal bilaterally. No accessory muscle use. GASTROINTESTINAL: Abdomen soft, non-tender, nondistended. No rebound or guarding. GENITOURINARY: In the presence of the nurse, February. Bimanual exam showed cervix closed to fingertip. There was no blood noted in the vaginal vault. There are no adnexal masses or pain noted. MUSCULOSKELETAL: No cyanosis, or edema. BACK: Nontender without obvious deformity. No CVA tenderness. NEUROLOGICAL: Awake and alert. Cranial nerves II through XII intact. Motor and sensory grossly within normal limits. Five out of 5 muscle strength in all muscle groups. Normal speech. Data Data Last Documented VS Vital Signs Date Time Temp Pulse Resp B/P (MAP) Pulse Ox O2 Delivery O2 Flow Rate FiO2 01/03/18 09:36 72 18 118/61 (80) 98 Room Air 01/03/18 09:02 98.1 Orders Orders Complete Blood Count With Diff (01/03/18 10:16) Urinalysis - C+S If Indicated (01/03/18 10:16) Beta Hcg (Quant/Titer) (01/03/18 10:16) Labs Laboratory Tests Test 01/03/18 08:30 01/03/18 09:30 White Blood Count 10.9 TH/MM3 Red Blood Count 4.28 MIL/MM3 Hemoglobin 13.9 GM/DL Hematocrit 39.3 % Mean Corpuscular Volume 91.9 FL Mean Corpuscular Hemoglobin 32.5 PG Mean Corpuscular Hemoglobin Concent 35.4 % Red Cell Distribution Width 11.8 % Platelet Count 175 TH/MM3 Mean Platelet Volume 9.4 FL Neutrophils (%) (Auto) 78.6 % Lymphocytes (%) (Auto) 13.1 % Monocytes (%) (Auto) 7.6 % Eosinophils (%) (Auto) 0.3 % Basophils (%) (Auto) 0.4 % Neutrophils # (Auto) 8.6 TH/MM3 Lymphocytes # (Auto) 1.4 TH/MM3 Monocytes # (Auto) 0.8 TH/MM3 Eosinophils # (Auto) 0.0 TH/MM3 Basophils # (Auto) 0.0 TH/MM3 CBC Comment AUTO DIFF Differential Total Cells Counted 100 Neutrophils % (Manual) 78 % Lymphocytes % 17 % Monocytes % 4 % Eosinophils % 1 % Neutrophils # (Manual) 8.5 TH/MM3 Differential Comment FINAL DIFF MANUAL Atypical Lymphocytes % Toxic Vacuolation PRESENT Platelet Estimate LOW Platelet Morphology Comment ENLARGED Red Cell Morphology Comment NORMAL Human Chorionic Gonadotropin, Quant [id number] MIU/ML Urine Color YELLOW Urine Turbidity CLEAR Urine pH 6.5 Urine Specific [place] 1.031 Urine Protein 30 mg/dL Urine Glucose (UA) NEG mg/dL Urine Ketones 40 mg/dL Urine Occult Blood NEG Urine Nitrite NEG Urine Bilirubin NEG Urine Urobilinogen LESS THAN 2.0 MG/DL Urine Leukocyte Esterase TRACE Urine RBC 1 /hpf Urine WBC 3 /hpf Urine Squamous Epithelial Cells 3 /hpf Urine Mucus FEW /lpf Microscopic Urinalysis Comment CULT NOT INDICATED MDM Medical Decision Making Medical Screen Exam Complete: Yes Emergency Medical Condition: Yes Differential Diagnosis Threatened miscarriage versus complete miscarriage versus ectopic Narrative Course 27-year-old female who reports she is 11-13 weeks , presents today with complaints of vaginal spotting. Patient also states she has pain in her left flank. Patient has a benign abdominal exam. Her cervix was closed to fingertip. Patient has previous blood work that showed her blood type to be be positive. Beta-hCG was 101,000. Bedside ultrasound performed by this physician shows an intrauterine with good movement. heart tones were in the 150s-160s. The patient does have leukocyte esterase in her urine. There is 3 white blood cells. She will be given Macrobid 100 mg twice daily 5 days. She also have her vitamins refilled. The patient will follow up with her OB doctor. She states she has an appointment in [place]. She is instructed to have pelvic rest until she sees OB physician. She is also instructed to return if she also any abdominal pain, increased bleeding or passage of tissue or clots. Diagnosis Primary Impression: Vaginal spotting Additional Impressions: Positive intrauterine Questionable early UTI History of incompetent cervix, currently Additional Instructions: Follow-up with OB physician. Return if increased pain, increased bleeding, passage of tissue or clots. Pelvic rest until seen by OB physician. Med/Other Pt SpecificInfo: Prescription(s) given Scripts Nitrofurantoin Monohydrate Macrocrystals (Macrobid) 100 Mg Capsule 100 MG PO BID for Infection for 5 Days, #10 CAP 0 Refills Prov: Eduard Martin MD 01/03/18 34/Iron/Folic/Dss/Dha (Public Information Director-Ch-Pnv Softgel) 30 Mg Iron-1 Mg-50 Mg-260 Mg Capsule 1 TAB PO DAILY for 30 Days Prov: Eduard Martin MD 01/03/18 Disposition: 01 DISCHARGE HOME Condition: Stable Eduard Martin MD Jan 03, 2018 12:57
[2018-01-03] MEDS ORDERED: ACETAMINOPHEN 325 MG TAB PO ONE (13:00)
[2018-01-03 13:10] VITALS: BP 110/67; PULSE 68; RESP 18; O2SAT 100
== END 2018-01-03 13:10 | disposition home or self-care (01) ==
LOC: NEPE 09:00
DX: O26.851 Spotting complicating pregnancy, first trimester (principal); O34.31 Maternal care for cervical incompetence, first trimester; Z3A.13 13 weeks gestation of pregnancy
CPT/HCPCS: 81001; 84702; 85007; 85027; 99283

== ENCOUNTER → 2018-01-27 | Outpatient (CLI) | payer MEDICARE, OTHER ==
[~2018-01-27] MED LIST changes: +ACYC400T PO; +MACR100C2 PO; -PNV11TAB PO
[2018-01-27 13:52] LABS: AUTOMATED NEUTROPHIL # 5.9 TH/MM3 (1.8-7.7); BASOPHIL % 0.2 % (0.0-2.0); EOSINOPHIL # 0.1 TH/MM3 (0-0.4); EOSINOPHIL % 0.7 % (0.0-4.0); HEMATOCRIT 36.6 % (35.0-46.0); HEMOGLOBIN 12.6 GM/DL (11.6-15.3); LYMPH % 21.5 % (9.0-44.0); LYMPHOCYTE # 1.9 TH/MM3 (1.0-4.8); MEAN CELL VOLUME 91.7 FL (80.0-100.0); MEAN CORPUSCULAR HEMOGLOBIN 31.6 PG (27.0-34.0); MEAN CORPUSCULAR HGB CONC 34.5 % (32.0-36.0); MEAN PLATELET VOLUME 8.9 FL (7.0-11.0); MONO % 9.5 % (0.0-8.0); MONOCYTE # 0.8 TH/MM3 (0-0.9); NEUT % 68.1 % (16.0-70.0); PLATELET COUNT 189 TH/MM3 (150-450); RED CELL DISTRIBUTION WIDTH 12.1 % (11.6-17.2); WHITE BLOOD COUNT 8.7 TH/MM3 (4.0-11.0)
[2018-01-27 14:21] LABS: SICKLE CELL SCREEN NEG (NEG)
[2018-01-27 16:08] LABS: HEPATITIS B SURFACE ANTIGEN NEGATIVE (NEGATIVE)
[2018-01-29 19:53] LABS: HIV 1/2 AG AB NON-REACTIVE (NONREACTIVE)
== END ==
LOC: ELAB 11:06
PROVIDERS: ATTEND Obstetrics & Gynecology
DX: A52.0 Cardiovascular and cerebrovascular syphilis (principal); Z20.820 Contact with and (suspected) exposure to varicella; Z13.228 Encounter for screening for other metabolic disorders; Z79.899 Other long term (current) drug therapy; Z13.21 Encounter for screening for nutritional disorder; Z3A.13 13 weeks gestation of pregnancy; Z11.59 Encounter for screening for other viral diseases; Z13.89 Encounter for screening for other disorder; Z13.29 Encounter for screening for other suspected endocrine disorder
CPT/HCPCS: 36415; 84443; 85025; 85660; 86592; 86762; 86787; 86850; 86900; 86901; 87086; 87340; 87389; 87535

== ENCOUNTER → 2018-02-10 | Day surgery (SDC) | payer MEDICARE, OTHER ==
--- NOTE | 2018-02-09 09:29 | MH ---
cc: Jesus Dyer MD DATE OF ADMISSION: 02/10/2018 This patient is a 27-year-old female. She is a 4, para 0 who is being admitted to [facility] for cervical cerclage. HISTORY OF PRESENT ILLNESS: The patient is well-known to our practice and she has had 3 repeated second trimester miscarriages, one at 28 weeks, one at 18 weeks and one at 17 weeks. She also had a cerclage at the 17 week miscarriage and despite the cerclage, she still lost . After the was lost, we advised her about having future pregnancies and the dismal outcome of a possible future . Despite that, she recently got again. She was not on any control and we discussed with her the fact that we would proceed with cervical cerclage, but the success rate of this procedure is small. She also has been put on Susana. We also set her up for maternal consult, but she will be seen around 18 weeks and because she is going to be seen so late, we are just going to proceed with the cerclage. MEDICAL HISTORY: Her medical history is negative. GYNECOLOGICAL HISTORY: She was recently treated for gonorrhea. SOCIAL HISTORY: She is a smoker and has continued to smoke throughout this . ALLERGIES: SHE DESCRIBES ALLERGIES TO LATEX WHERE SHE RECEIVES A MILD RASH AND TRAMADOL. REVIEW OF SYSTEMS: Essentially negative. PHYSICAL EXAM: The patient was seen well-developed, well-nourished in no acute distress. VITAL SIGNS: Blood pressure is 108/63, pulse is 70, respirations are 12, BMI was 24.8. HEENT: Negative. CHEST: Clear to auscultation. CARDIOVASCULAR: Revealed a regular rate. ABDOMEN: Revealed fundal height at approximately 16 weeks. Positive heart sounds. PELVIC: The cervix was closed and showed just slight effacement of 10-20%. EXTREMITIES: Reveal no cyanosis, clubbing or edema. NEUROPSYCHIATRIC: The patient was oriented x 3 and showed no gross neural cranial deficit. 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 PLAN: The plan is to proceed with cervical cerclage along with Haugan injections and it is to be noted that lab studies have shown no genetic abnormalities through NIPT testing in the fetus. Jesus Dyer MD JSG/DL , 08:53 AM , 09:27 AM
[~2018-02-10] VITALS: Ht 165.1 cm; Wt 68.6 kg
[~2018-02-10] MED LIST changes: +ACETAMINOPHEN 325 MG TAB PO PRN; +CHLORHEXIDINE GLUCONATE 2 % 1 PACK (2 CLOTHS) TOPICAL PRN; +DO NOT ADM ANY ANTICOAGULANT DRUGS PRN; +LACTATED RINGER'S 1000 ML IV PRN; +METOPROLOL TARTRATE 25 MG TAB PO PRN; +POVIDONE IODINE 5% (ANTISEPSIS KIT) 4 APPLICATIONS EACH NARE PRN; +SODIUM CHLORID 0.9% 500 ML IV PRN; +ceFAZolin 2 GM PREMIX 50 ML IV SCH
--- NOTE | 2018-02-10 07:58 | MP ---
cc: Jesus Dyer MD DATE OF OPERATION: 02/10/2018 PREOPERATIVE DIAGNOSIS: Cervical incompetence. POSTOPERATIVE DIAGNOSIS: Cervical incompetence. OPERATION: Cervical cerclage. SURGEON: Jesus Dyer MD ANESTHESIA: Spinal. ESTIMATED BLOOD LOSS: Minimal. COMPLICATIONS: None. LAMINATION ASSEMBLER: None. PROCEDURE: Patient prepped and draped in the dorsal lithotomy position. A weighted speculum was placed in the posterior vaginal wall. The anterior lip of the cervix was visualized and a #1 Prolene was placed at the 12 o'clock position and then a circumferential stitch was performed entering the cervical mucosa at 4 separate points and then tied again at the 12 o'clock position. A second suture of 1 Prolene was then placed approximately a 0.5 cm behind the first, also placed at the 12 o'clock position and then running a circumferential stitch and then tied again at the 12 o'clock position. After good hemostasis was noted, the speculum was then removed and the patient returned to the recovery room in stable condition. Jesus Dyer MD JSG/DL , 07:38 AM , 07:57 AM
[2018-02-10 11:30] VITALS: BP 114/65; PULSE 78; RESP 20; TEMP 98.8; O2SAT 99
== END | disposition home or self-care (01) ==
LOC: HSDC 05:05
PROVIDERS: ATTEND Obstetrics & Gynecology
DX: O34.33 Maternal care for cervical incompetence, third trimester (principal); Z3A.28 28 weeks gestation of pregnancy
CPT/HCPCS: 00948; 59320; J0690; J7120

== ENCOUNTER 2018-03-04 10:21 | Emergency (ER) | payer MEDICARE, OTHER ==
[~2018-03-04] VITALS: Ht 165.1 cm; Wt 68.5 kg
[~2018-03-04 10:21] MED LIST changes: -ACETAMINOPHEN 325 MG TAB PO PRN; -CHLORHEXIDINE GLUCONATE 2 % 1 PACK (2 CLOTHS) TOPICAL PRN; -DO NOT ADM ANY ANTICOAGULANT DRUGS PRN; -LACTATED RINGER'S 1000 ML IV PRN; -METOPROLOL TARTRATE 25 MG TAB PO PRN; -POVIDONE IODINE 5% (ANTISEPSIS KIT) 4 APPLICATIONS EACH NARE PRN; -SODIUM CHLORID 0.9% 500 ML IV PRN; -ceFAZolin 2 GM PREMIX 50 ML IV SCH
[2018-03-04 10:37] VITALS: BP 116/69; PULSE 77; TEMP 97.9
[2018-03-04 10:40] VITALS: PULSE 73
--- NOTE | 2018-03-04 11:06 | PD ---
HPI Chief Complaint Possible leakage of fluid with cerclage Date Seen: Mar 04, 2018 Time Seen: 11:00 Travel History International Travel<30 Days: No Contact w/Intl Traveler<30Days: No Known Affected Area: No History of Present Illness HPI 27-year-old 4 para 0 AB 3 with an EDC of August 01, 2018 who comes today concerned that she may be cramping and leaking fluid. She denies any bleeding. She reports that [facility] and received 17 hydroxyprogesterone injection which she receives weekly. She had a cerclage placed in January for history of incompetent cervix with 3 prior losses at 20, 18 and 17 weeks. She has a history of gonorrhea this which was treated with a negative test of cure February 17. History Past Medical History Medical History: Denies Significant Hx Obstetric History Obstetric History 3 prior second trimester losses Cerclage at [address] Dyer Treated for gonorrhea this with negative test of cure. Past Surgical History Narrative Surgical D&C, cerclage 2 Family History Family History: Negative Social History Alcohol Use: No Tobacco Use: No Substance Abuse: No Allergies-Medications (Allergen,Severity, Reaction): Coded Allergies: latex (Unverified Allergy, Mild, Rash, 02/10/18) tramadol (Unverified Adverse Reaction, Intermediate, 02/10/18) Home Meds Active Scripts Nitrofurantoin Monohydrate Macrocrystals (Macrobid) 100 Mg Capsule, 100 MG PO BID for Infection for 5 Days, #10 CAP 0 Refills Prov:Eduard Martin MD 01/03/18 34/Iron/Folic/Dss/Dha (Board Layer-Ch-Pnv Softgel) 30 Mg Iron-1 Mg-50 Mg-260 Mg Capsule, 1 TAB PO DAILY for 30 Days Prov:Eduard Martin MD 01/03/18 Reported Medications Acyclovir (Acyclovir) 400 Mg Tab, PO DIRECTED for Mgmt Viral Infection, TAB 0 Refills 01/03/18 Review of Systems Except as stated in HPI: all other systems reviewed are Neg Physical Exam Vital Signs Date Time Temp Pulse Resp B/P (MAP) Pulse Ox O2 Delivery O2 Flow Rate FiO2 03/04/18 10:40 73 03/04/18 10:37 77 116/69 (85) 03/04/18 10:37 97.9 Narrative GENERAL: Well-nourished, well-developed patient. SKIN: Warm and dry. HEAD: Normocephalic and atraumatic. EYES: No scleral icterus. No injection or drainage. ENT: No nasal drainage noted. Mucous membranes pink. Airway patent. NECK: Supple, trachea midline. No JVD. CARDIOVASCULAR: Regular rate and rhythm without murmurs, gallops, or rubs. RESPIRATORY: Breath sounds equal bilaterally. No accessory muscle use. ABDOMEN/GI: Abdomen soft, non-tender, bowel sounds present, no rebound, no guarding Gravid to [-] weeks size Fundal Height: [U -2-] GENITOURINARY: External Genitalia: intact and normal in appearance BUS glands: [Negative-] Cervix: [-Cerclage is palpable] Dilatation: [Closed-] Effacement: [-80] Station: [-High] Presentation: [-Undetermined] Membranes: [intact or ruptured] Uterine Contractions: [-] FHT's: Category: [-] Baseline: [-140] Reactive: [-] Variability: [-] Decels: [-] EXTREMITIES: No cyanosis or edema. BACK: Nontender without obvious deformity. No CVA tenderness. NEUROLOGICAL: Awake and alert. Motor and sensory grossly within normal limits. Five out of 5 muscle strength in all muscle groups. Normal speech. Data Data Vital Signs Reviewed: Yes Orders Orders Vital Signs (Adult) .ON ADMISSION (03/04/18 10:31) ^ Labor Status (03/04/18 10:31) ^ Non Stress Test (03/04/18 10:31) ^ Hydration (03/04/18 10:31) Pamg-1 Test .ONCE (03/04/18 10:31) Pamg-1 Test .ONCE (03/04/18 10:48) Urinalysis - C+S If Indicated (03/04/18 10:48) Us Ob Pelvis >14wks Fetus W/Tv (03/04/18 10:31) MDM Medical Record Reviewed: Yes Narrative Course / MDM Assessment: 18 6/7 week intrauterine with history of incompetent cervix. Negative amnio sure. Plan: Urinalysis, GC chlamydia, wet prep. Ultrasound for cervical length. Addendum: UA ok, neg wet prep cvx 33mm by OB diagnostics compressible to 23mm Plan: discharge home with pelvic rest, f/u 03/16. Diagnosis Diagnosis: Primary Impression: 18 weeks gestation of Additional Impression: Hx of incompetent cervix, currently Disposition: 01 DISCHARGE HOME Condition: Stable Alejandro Davidson MD Mar 04, 2018 11:06
[2018-03-04 11:40] LABS: BACTERIA, URINE OCC /hpf; BILIRUBIN, URINE NEG (NEG); BLOOD, URINE NEG (NEG); GLUCOSE,URINE NEG (NEG); KETONE, URINE NEG (NEG); MUCUS URINE FEW /lpf (OCC); NITRITE,URINE NEG (NEG); RENAL EPITHELIAL CELLS <1 /hpf; SQUAMOUS EPITHELIAL CELL URINE 4 /hpf (0-5); URINE COLOR YELLOW (YELLW/STRAW); URINE LEUKOCYTE ESTERASE SMALL (NEG)
== END 2018-03-04 12:53 | disposition home or self-care (01) ==
LOC: HOBED 10:21
DX: O34.32 Maternal care for cervical incompetence, second trimester (principal); Z3A.18 18 weeks gestation of pregnancy
CPT/HCPCS: 76805; 76817; 81001; 84112; 87210; 87491; 87591

== ENCOUNTER → 2018-03-16 | Outpatient (CLI) | payer MEDICARE, OTHER ==
[~2018-03-16] MED LIST changes: -MACR100C2 PO
== END ==
LOC: HPND 11:54
PROVIDERS: ATTEND Obstetrics & Gynecology
DX: O34.32 Maternal care for cervical incompetence, second trimester (principal); O09.292 Supervision of pregnancy with other poor reproductive or obstetric history, second trimester
CPT/HCPCS: 76815; 76817

== ENCOUNTER 2018-03-27 12:27 | Inpatient (IN) | payer MEDICARE, OTHER ==
[2018-03-27] VITALS (7 sets, daily range): BP systolic 107–131; BP diastolic 71–111; PULSE 63–144; RESP 18; TEMP 97.7–98.2
[~2018-03-27] VITALS: Ht 165.1 cm; Wt 70.3 kg
[2018-03-27] MEDS ORDERED: ONDANSETRON ODT 4 MG TAB PO PRN ×2 (13:45→20:45)
[2018-03-27] MEDS ORDERED: SODIUM CHLORIDE 0.9% FLUSH 10 ML FLUSH IV FLUSH PRN ×2 (13:45→20:45)
[2018-03-27] MEDS ORDERED: ZOLPIDEM TARTRATE 5 MG TAB PO PRN ×2 (13:45→20:45)
[2018-03-27] MEDS ORDERED: LACTATED RINGER'S 1000 ML INJ 1,000 ML IV ONE (14:00)
--- NOTE | 2018-03-27 14:09 | PD ---
HPI Chief Complaint Miscarrying Date Seen: Mar 27, 2018 Time Seen: 13:20 Travel History International Travel<30 Days: No Contact w/Intl Traveler<30Days: No Known Affected Area: No History of Present Illness HPI 27-year-old female 21 weeks 6 days gestation with an YAKOV of July 30 who has a cerclage that was placed at 14 weeks secondary to history of incompetent cervix with 3 prior second trimester losses. The patient has had low back pain this morning and was having a bowel movement and felt like something was bulging in the lower vagina. She felt a squishy material and pushed this back inside and came to the hospital concerned that she was delivering. Upon arrival in triage she had a viable with heart tones in the 150's. Speculum examination showed a small pool of pinkish fluid which was positive for amniotic fluid. There was no foul odor. The cerclage was visible and the cervix was visually dilated to 3-4 cm with the bag of water visible and the vertex visible. Para: 0 : 4 Miscarriage: 3 History Past Medical History Narrative Medical Previous psychiatric treatment for paranoia Obstetric History Obstetric History 3 prior second trimester losses due to incompetent cervix She receives care at [facility]. She was treated this for gonorrhea and trichomonas. She had negative test of cure. Past Surgical History Narrative Surgical Cerclage 3, D&C 1 Family History Family History: Negative Social History Alcohol Use: No Tobacco Use: No Substance Abuse: No Allergies-Medications (Allergen,Severity, Reaction): Coded Allergies: latex (Unverified Allergy, Mild, Rash, 02/10/18) tramadol (Verified Adverse Reaction, Intermediate, Hives, 03/27/18) Home Meds Active Scripts 34/Iron/Folic/Dss/Dha (Miniature Set Constructor-Ch-Pnv Softgel) 30 Mg Iron-1 Mg-50 Mg-260 Mg Capsule, 1 TAB PO DAILY for 30 Days Prov:Eduard Martin MD 01/03/18 Reported Medications Acyclovir (Acyclovir) 400 Mg Tab, PO DIRECTED for Mgmt Viral Infection, TAB 0 Refills 01/03/18 Review of Systems Except as stated in HPI: all other systems reviewed are Neg Physical Exam Narrative GENERAL: Well-nourished, well-developed patient. SKIN: Warm and dry. HEAD: Normocephalic and atraumatic. EYES: No scleral icterus. No injection or drainage. ENT: No nasal drainage noted. Mucous membranes pink. Airway patent. NECK: Supple, trachea midline. No JVD. CARDIOVASCULAR: Regular rate and rhythm without murmurs, gallops, or rubs. RESPIRATORY: Breath sounds equal bilaterally. No accessory muscle use. ABDOMEN/GI: Abdomen soft, non-tender, bowel sounds present, no rebound, no guarding Gravid to [-] weeks size, nontender, palpable movement Fundal Height: [21-] GENITOURINARY: External Genitalia: intact and normal in appearance BUS glands: [-Negative] Cervix: [Cerclage suture visible at 1:00-] Dilatation: [-3-4 visually] Effacement: [90-] Station: [-] Presentation: [Vertex-] Membranes: [ruptured] Uterine Contractions: [-Irritability] FHT's: Category: [-] Baseline: [-150] Reactive: [-] Variability: [-] Decels: [-] EXTREMITIES: No cyanosis or edema. BACK: Nontender without obvious deformity. No CVA tenderness. NEUROLOGICAL: Awake and alert. Motor and sensory grossly within normal limits. Five out of 5 muscle strength in all muscle groups. Normal speech. Data Data Orders Orders Ob (2e) Additional Admit Info (03/27/18 13:44) Admit To Inpatient (03/27/18 ) Diet Regular Basic (03/27/18 Lunch) Vital Signs (Adult) PATRICIA.[id number] AWAKE (03/27/18 13:43) Heart PATRICIA.QSHIFT (03/27/18 13:43) Activity Bed Rest (03/27/18 13:43) Complete Blood Count With Diff (03/27/18 13:43) Urinalysis - C+S If Indicated (03/27/18 13:43) Kfamlkmk-Ksq-Fmeyt-Iron Prenat (Stuartna (03/28/18 09:00) Docusate Sodium (Colace) (03/28/18 09:00) Sodium Chloride 0.9% Flush (Ns Flush) (03/27/18 21:00) Sodium Chloride 0.9% Flush (Ns Flush) (03/27/18 13:45) Zolpidem (Ambien) (03/27/18 13:45) Ondansetron Odt (Zofran Odt) (03/27/18 13:45) Ob/Psych Drug Screen, Urine (03/27/18 13:43) Hold Clot (03/27/18 13:43) Inpatient Certification (03/27/18 ) MDM Medical Record Reviewed: Yes Narrative Course / MDM Assessment: 21-6/7 weeks gestation with incompetent cervix, cerclage and now ruptured membranes with cervical dilation without evidence of intra-amniotic infection grossly. Plan: I discussed with the patient the options of expectant management with or without cerclage removal versus proceeding with delivery for inevitable AB. We addressed the fact that the was previable at this time. I discussed the patient with the perinatologist on-call at [facility] regarding possible admission for the tiny baby program. They will not accept the patient until she achieves 23 weeks. After thorough review of the maternal and risks involved the patient would like to proceed with expectant management without removal of the cerclage. She understands retention of the cerclage may increase her risk of infection. We will initiate bedrest with Vance catheter in the urinary bladder and Trendelenburg. CBC, GC, chlamydia ,urinalysis 1 L IV hydration and followed by IV Hep-Lock Ultrasound tomorrow as I don't expect this to change treatment today. Alejandro Davidson MD Mar 27, 2018 14:09
--- NOTE | 2018-03-27 14:13 | HHI.HP ---
History & Physical H&P Patient Name: Layla Davila Unit Number: [id number] Date of : 1990 Patient Status: Registered Emergency Room Attending Doctor: Alejandro Davidson MD HPI HPI Chief Complaint Miscarrying Date Seen: Mar 27, 2018 Time Seen: 13:20 Travel History International Travel<30 Days: No Contact w/Intl Traveler<30Days: No Known Affected Area: No History of Present Illness HPI 27-year-old female 21 weeks 6 days gestation with an YAKOV of July 30 who has a cerclage that was placed at 14 weeks secondary to history of incompetent cervix with 3 prior second trimester losses. The patient has had low back pain this morning and was having a bowel movement and felt like something was bulging in the lower vagina. She felt a squishy material and pushed this back inside and came to the hospital concerned that she was delivering. Upon arrival in triage she had a viable with heart tones in the 150's. Speculum examination showed a small pool of pinkish fluid which was positive for amniotic fluid. There was no foul odor. The cerclage was visible and the cervix was visually dilated to 3-4 cm with the bag of water visible and the vertex visible. Para: 0 : 4 Miscarriage: 3 History (Limited) History Past Medical History Narrative Medical Previous psychiatric treatment for paranoia Obstetric History Obstetric History 3 prior second trimester losses due to incompetent cervix She receives care at [facility]. She was treated this for gonorrhea and trichomonas. She had negative test of cure. Past Surgical History Narrative Surgical Cerclage 3, D&C 1 Family History Family History: Negative Social History Alcohol Use: No Tobacco Use: No Substance Abuse: No Allergies-Medications Allergies-Medications (Allergen,Severity, Reaction): Coded Allergies: latex (Unverified Allergy, Mild, Rash, 02/10/18) tramadol (Verified Adverse Reaction, Intermediate, Hives, 03/27/18) Home Meds Active Scripts 34/Iron/Folic/Dss/Dha (Patrol Agent-Ch-Pnv Softgel) 30 Mg Iron-1 Mg-50 Mg-260 Mg Capsule, 1 TAB PO DAILY for 30 Days Prov:Eduard Martin MD 01/03/18 Reported Medications Acyclovir (Acyclovir) 400 Mg Tab, PO DIRECTED for Mgmt Viral Infection, TAB 0 Refills 01/03/18 ROS Review of Systems Except as stated in HPI: all other systems reviewed are Neg Physical Exam Physical Exam Narrative GENERAL: Well-nourished, well-developed patient. SKIN: Warm and dry. HEAD: Normocephalic and atraumatic. EYES: No scleral icterus. No injection or drainage. ENT: No nasal drainage noted. Mucous membranes pink. Airway patent. NECK: Supple, trachea midline. No JVD. CARDIOVASCULAR: Regular rate and rhythm without murmurs, gallops, or rubs. RESPIRATORY: Breath sounds equal bilaterally. No accessory muscle use. ABDOMEN/GI: Abdomen soft, non-tender, bowel sounds present, no rebound, no guarding Gravid to [-] weeks size, nontender, palpable movement Fundal Height: [21-] GENITOURINARY: External Genitalia: intact and normal in appearance BUS glands: [-Negative] Cervix: [Cerclage suture visible at 1:00-] Dilatation: [-3-4 visually] Effacement: [90-] Station: [-] Presentation: [Vertex-] Membranes: [ruptured] Uterine Contractions: [-Irritability] FHT's: Category: [-] Baseline: [-150] Reactive: [-] Variability: [-] Decels: [-] EXTREMITIES: No cyanosis or edema. BACK: Nontender without obvious deformity. No CVA tenderness. NEUROLOGICAL: Awake and alert. Motor and sensory grossly within normal limits. Five out of 5 muscle strength in all muscle groups. Normal speech. Data Data Data Orders Orders Ob (2e) Additional Admit Info (03/27/18 13:44) Admit To Inpatient (03/27/18 ) Diet Regular Basic (03/27/18 Lunch) Vital Signs (Adult) PATRICIA.[id number] AWAKE (03/27/18 13:43) Heart PATRICIA.QSHIFT (03/27/18 13:43) Activity Bed Rest (03/27/18 13:43) Complete Blood Count With Diff (03/27/18 13:43) Urinalysis - C+S If Indicated (03/27/18 13:43) Mtoikgem-Rze-Miwim-Iron Prenat (Stuartna (03/28/18 09:00) Docusate Sodium (Colace) (03/28/18 09:00) Sodium Chloride 0.9% Flush (Ns Flush) (03/27/18 21:00) Sodium Chloride 0.9% Flush (Ns Flush) (03/27/18 13:45) Zolpidem (Ambien) (03/27/18 13:45) Ondansetron Odt (Zofran Odt) (03/27/18 13:45) Ob/Psych Drug Screen, Urine (03/27/18 13:43) Hold Clot (03/27/18 13:43) Inpatient Certification (03/27/18 ) MDM MDM Medical Record Reviewed: Yes Narrative Course / MDM Assessment: 21-6/7 weeks gestation with incompetent cervix, cerclage and now ruptured membranes with cervical dilation without evidence of intra-amniotic infection grossly. Plan: I discussed with the patient the options of expectant management with or without cerclage removal versus proceeding with delivery for inevitable AB. We addressed the fact that the was previable at this time. I discussed the patient with the perinatologist on-call at [facility] regarding possible admission for the tiny baby program. They will not accept the patient until she achieves 23 weeks. After thorough review of the maternal and risks involved the patient would like to proceed with expectant management without removal of the cerclage. She understands retention of the cerclage may increase her risk of infection. We will initiate bedrest with Vance catheter in the urinary bladder and Trendelenburg. CBC, GC, chlamydia ,urinalysis 1 L IV hydration and followed by IV Hep-Lock Ultrasound tomorrow as I don't expect this to change treatment today. Alejandro Davidson MD Mar 27, 2018 14:09 Alejandro Davidson MD Mar 27, 2018 14:13
[2018-03-27] MEDS ORDERED: ACETAMINOPHEN/HYDROcodone 325 MG/5 MG TAB PO PRN (14:15)
[2018-03-27 14:33] LABS: AUTOMATED NEUTROPHIL # 9.5 TH/MM3 (1.8-7.7); BASOPHIL % 0.3 % (0.0-2.0); EOSINOPHIL # 0.3 TH/MM3 (0-0.4); EOSINOPHIL % 2.7 % (0.0-4.0); HEMATOCRIT 33.3 % (35.0-46.0); HEMOGLOBIN 11.3 GM/DL (11.6-15.3); LYMPH % 12.1 % (9.0-44.0); LYMPHOCYTE # 1.5 TH/MM3 (1.0-4.8); MEAN CELL VOLUME 91.7 FL (80.0-100.0); MEAN CORPUSCULAR HEMOGLOBIN 31.2 PG (27.0-34.0); MEAN PLATELET VOLUME 9.2 FL (7.0-11.0); MONO % 7.9 % (0.0-8.0); PLATELET COUNT 163 TH/MM3 (150-450); RED BLOOD COUNT 3.63 MIL/MM3 (4.00-5.30); RED CELL DISTRIBUTION WIDTH 13.1 % (11.6-17.2); WHITE BLOOD COUNT 12.4 TH/MM3 (4.0-11.0)
[2018-03-27 14:50] LABS: AMORPHOUS SEDIMENT, URINE RARE; BACTERIA, URINE RARE /hpf; BILIRUBIN, URINE NEG (NEG); BLOOD, URINE NEG (NEG); GLUCOSE,URINE NEG (NEG); KETONE, URINE NEG (NEG); MUCUS URINE FEW /lpf (OCC); NITRITE,URINE NEG (NEG); URINE COLOR YELLOW (YELLW/STRAW); URINE LEUKOCYTE ESTERASE SMALL (NEG)
[2018-03-27] MEDS ORDERED: MEASLES, MUMPS, RUBELLA VACCINE 0.5 ML VIAL SQ ONE (16:00)
[2018-03-27] MEDS ORDERED: OXYTOCIN 30 UNITS-500ML PREMIX 500 ML ONE (18:18)
[2018-03-27] MEDS ORDERED: LACTATED RINGER'S 1000 ML INJ 1,000 ML IV SCH (18:24)
--- NOTE | 2018-03-27 18:24 | PD.OB.ANTE ---
Subjective Interval History Reports increasing pain and feels like she needs to push. Objective Vital Signs Vital Signs Date Time Temp Pulse Resp B/P (MAP) Pulse Ox O2 Delivery O2 Flow Rate FiO2 03/27/18 16:00 98.2 03/27/18 15:58 16 Lab & Micro Results Test 03/27/18 13:05 03/27/18 13:51 Clue Cells (Wet Prep) NONE SEEN Vaginal Trichomonas (Wet Prep) NONE SEEN Vaginal Yeast (Wet Prep) NONE SEEN White Blood Count 12.4 TH/MM3 Red Blood Count 3.63 MIL/MM3 Hemoglobin 11.3 GM/DL Hematocrit 33.3 % Mean Corpuscular Volume 91.7 FL Mean Corpuscular Hemoglobin 31.2 PG Mean Corpuscular Hemoglobin Concent 34.0 % Red Cell Distribution Width 13.1 % Platelet Count 163 TH/MM3 Mean Platelet Volume 9.2 FL Neutrophils (%) (Auto) 77.0 % Lymphocytes (%) (Auto) 12.1 % Monocytes (%) (Auto) 7.9 % Eosinophils (%) (Auto) 2.7 % Basophils (%) (Auto) 0.3 % Neutrophils # (Auto) 9.5 TH/MM3 Lymphocytes # (Auto) 1.5 TH/MM3 Monocytes # (Auto) 1.0 TH/MM3 Eosinophils # (Auto) 0.3 TH/MM3 Basophils # (Auto) 0.0 TH/MM3 CBC Comment DIFF FINAL Differential Comment Urine Color YELLOW Urine Turbidity CLOUDY Urine pH 8.0 Urine Specific [place] 1.020 Urine Protein TRACE mg/dL Urine Glucose (UA) NEG mg/dL Urine Ketones NEG mg/dL Urine Occult Blood NEG Urine Nitrite NEG Urine Bilirubin NEG Urine Urobilinogen LESS THAN 2.0 MG/DL Urine Leukocyte Esterase SMALL Urine RBC 2 /hpf Urine WBC 1 /hpf Urine Amorphous Sediment RARE Urine Bacteria RARE /hpf Urine Mucus FEW /lpf Microscopic Urinalysis Comment CATH-CULTURE IND Urine Opiates Screen NEG Urine Barbiturates Screen NEG Urine Amphetamines Screen NEG Urine Benzodiazepines Screen POS Urine Cocaine Screen POS Urine Cannabinoids Screen POS Date/Time Source Procedure Growth Status 03/27/18 13:51 Urine Catheterized Urine Urine Culture Pending Received Physical Exam ABDOMEN/GI: Abdomen soft, non-tender. Fundus: [-] GENITOURINARY: External Genitalia: intact and normal in appearance Cervix: [There is no bleeding from the cervix. The only component of the cerclage that is palpable is at the 1 o'clock position-] Dilatation: [Complete] Effacement: [100-] Station: [-] Presentation: [-] Membranes: [-] Uterine Contractions: [Irregular-] FHT's: Category: [-] Baseline: [-] Reactive: [-] Variability: [-] Decels: [-] EXTREMITIES: No cyanosis or edema, non-tender, without signs of DVT. Assessment and Plan Assessment and Plan Assessment:inevitable AB, iminent delivery, UDS + cocaine, THC, Barbiturates Plan: Expectant management. No appreciably intact cerclage. Alejandro Davidson MD Mar 27, 2018 18:24
--- NOTE | 2018-03-27 20:42 | PD.OB.DELI ---
Weeks gestation: 21 Gest age assessed date: Mar 27, 2018 Pt started active labor?: Yes Active labor start date: Mar 27, 2018 Anesthesia: None Episiotomy: None Vaginal Delivery: Normal Presentation: Breech Nuchal Cord: None Delayed cord clamping (45 sec): No Delivery date: Mar 27, 2018 Delivery time: 20:12 Placenta: Spontaneous delivery, Intact Laceration: No lacerations Estimated blood loss: 200 Additional Information Following spontaneous rupture of the fore bag the breech of this previable fetus presented and the remainder the followed spontaneously by maternal effort. Cord was clamped and cut and the placenta then was delivered. It was grossly normal and apparently intact. It was sent for pathologic evaluation. Hemostasis was obtained with massage and IV Pitocin solution. The cervix was inspected and no bleeding sites were identified. The cerclage stitch was visible at 1:00 and was cut and removed. Alejandro Davidson MD Mar 27, 2018 20:42
[2018-03-27] MEDS ORDERED: ALUMINUM/MAGNESIUM/SIMETH 30 ML CUP PO PRN (20:45)
[2018-03-27] MEDS ORDERED: ACETAMINOPHEN 325 MG TAB PO PRN (20:45)
[2018-03-27] MEDS ORDERED: BENZOCAINE 20% TOPICAL SPRAY 60 ML CAN TOPICAL PRN (20:45)
[2018-03-27] MEDS ORDERED: DOCUSATE SODIUM 50 MG/SENNA 8.6 MG TAB PO PRN (20:45)
[2018-03-27] MEDS ORDERED: OXYTOCIN 30 UNITS-500ML PREMIX 500 ML IV SCH (20:45)
[2018-03-27] MEDS ORDERED: WITCH HAZEL 50%/GLYCERIN 12.5% 40 PAD JAR TOPICAL PRN (20:45)
[2018-03-27] MEDS ORDERED: oxyCODONE/ACETAMINOPHEN 5 MG/325 MG TAB PO PRN ×2 (20:45)
[2018-03-27] MEDS: IBUPROFEN 800 MG TAB PO PRN (20:59)
[2018-03-27] MEDS ORDERED: SODIUM CHLORIDE 0.9% FLUSH 10 ML FLUSH IV FLUSH SCH ×2 (21:00)
[2018-03-28] MEDS: IBUPROFEN 800 MG TAB PO PRN (08:33)
[2018-03-28] MEDS ORDERED: DOCUSATE SODIUM 100 MG CAP PO SCH (09:00)
[2018-03-28] MEDS ORDERED: MULTIVIT/MIN/PREN/FOL AC/IRON PRENATAL TAB PO SCH (09:00)
--- NOTE | 2018-03-28 09:36 | HHI.OB ---
Subjective Post Day: 1 Remarks Patient seen and examined this AM. Remains afebrile. She reports minimal vaginal bleeding. Denies abnormal vaginal discharge, denies dysuria. She specifically denies fevers or chills, chest pain, dyspnea, abdominal or pelvic pain. She states she is not wanting to meet with a therapist or psychiatrist at this time, however will consider this as an outpatient. Discussed contraception with the patient this morning, she does not want Depo-Provera, she is considering OCPs and will discuss this with her primary OB provider. Objective Vitals/I&O Vital Signs Date Time Temp Pulse Resp B/P (MAP) Pulse Ox O2 Delivery O2 Flow Rate FiO2 03/27/18 21:46 144 131/111 (118) 03/27/18 21:31 63 123/79 (94) 03/27/18 21:16 120 107/79 (88) 03/27/18 21:00 77 113/71 (85) 03/27/18 20:53 97.7 18 03/27/18 20:43 66 114/78 (90) 03/27/18 16:00 98.2 03/27/18 15:58 16 Objective Remarks GENERAL: Well-nourished, well-developed patient. CARDIOVASCULAR: Regular rate and rhythm without murmurs, gallops, or rubs. RESPIRATORY: Breath sounds equal bilaterally. No accessory muscle use. ABDOMEN/GI: Abdomen soft, non-tender. Fundus: Firm, non-tender at umbilicus. GENITOURINARY: Light to moderate bleeding. EXTREMITIES: No cyanosis or edema, non-tender, without signs of DVT. Medications and IVs Current Medications Medications (Trade) Dose Ordered Sig/[place] Route Start Time Stop Time Status Last Admin (Stuartnatal Plus 3 ) 1 tab DAILY PO 03/28/18 09:00 (Colace) 100 mg DAILY PO 03/28/18 09:00 03/28/18 08:33 (NS Flush) 2 ml BID IV FLUSH 03/27/18 21:00 (NS Flush) 2 ml UNSCH PRN IV FLUSH 03/27/18 13:45 03/27/18 14:30 (Ambien) 5 mg HS PRN PO 03/27/18 13:45 (Zofran Odt) 4 mg Q6H PRN PO 03/27/18 13:45 ([place] 5-325 Mg) 1 tab Q4H PRN PO 03/27/18 14:15 03/27/18 14:27 Lactated Ringer's 1,000 ml @ 125 mls/hr Q8H IV 03/27/18 18:24 (fentaNYL INJ) 50 mcg Q1H PRN IV PUSH 03/27/18 18:30 03/27/18 19:44 (NS Flush) 2 ml BID IV FLUSH 03/27/18 21:00 (NS Flush) 2 ml UNSCH PRN IV FLUSH 03/27/18 20:45 (Tylenol) 650 mg Q4H PRN PO 03/27/18 20:45 (Motrin) 800 mg Q8H PRN PO 03/27/18 20:45 03/28/18 08:33 (Percocet 5-325 Mg) 1 tab Q4H PRN PO 03/27/18 20:45 (Percocet 5-325 Mg) 2 tab Q4H PRN PO 03/27/18 20:45 03/27/18 20:59 (Americaine 20% Top Spr) 1 spray Q4H PRN TOPICAL 03/27/18 20:45 (Tucks Pads) 1 applic QID PRN TOPICAL 03/27/18 20:45 (Charlene-Colace) 2 tab Q12H PRN PO 03/27/18 20:45 (Ambien) 5 mg HS PRN PO 03/27/18 20:45 (Mag-Al Plus Susp Liq) 15 ml Q8H PRN PO 03/27/18 20:45 (Zofran Odt) 4 mg Q6H PRN PO 03/27/18 20:45 (Zovirax 5% Cream) 1 applic 5 TIMES A DAY TOPICAL 03/28/18 10:00 Assessment/Plan Assessment and Plan Patient is a 27 year old PPD#1 s/p vaginal delivery of a nonviable fetus at 21/6 weeks gestation. - Instructed patient to continue to follow at [facility] and encouraged her to seek psychosocial support as an outpatient - Continue motrin prn pain - Discussed contraception with the patient this morning, patient states she will follow up with her OB provider to start OCPs - Stable for discharge home today dw OB Hospitalist Simeon Dalton MD R2 Mar 28, 2018 09:36
--- NOTE | 2018-03-28 09:37 | HHI.DCPOC ---
Discharge Care Plan Diagnosis: (1) Inevitable Report Symptoms to Your Doctor -Temperature above 100.5 degrees -Redness, of incision or excessive or foul smelling drainage -Unusual pain or calf pain -Increased vaginal bleeding -Painful or difficulty urinating -Feelings of extreme sadness or anxiety after 2 weeks Goals to Promote Your Health * To maintain your health at the optimal level, follow up with your primary OB provider within 6 weeks after hospital discharge. Directions to Meet Your Goals Take your medications as prescribed Follow your dietary instruction Follow activity as directed Ensure plenty of rest for recovery Drink fluids for hydration Keep your appointments as scheduled Take your immunizations and boosters as scheduled If your symptoms worsen call your PCP, if no PCP go to Urgent Care Center or Emergency Room Smoking is Dangerous to Your Health. Avoid second hand smoke Call the 24-hour crisis hotline for domestic abuse at Simeon Dalton MD R2 Mar 28, 2018 09:37
[2018-03-28] MEDS ORDERED: IBUP1TAB7 PO (09:38)
[2018-03-28] MEDS ORDERED: ACYCLOVIR 5% CREAM 5 GM TUBE TOPICAL SCH (10:00)
== END 2018-03-28 10:03 | disposition home or self-care (01) | DRG 983 ==
LOC: HOBED 12:27 → H2EB 13:46
PROVIDERS: ADMIT Obstetrics & Gynecology; ATTEND Obstetrics & Gynecology
PROC: 10E0XZZ Delivery of Products of Conception, External Approach (ICD-10-PCS; principal; 2018-03-27)
PROC: 0UCC7ZZ Extirpation of Matter from Cervix, Via Natural or Artificial Opening (ICD-10-PCS; 2018-03-27)
DX: O34.32 Maternal care for cervical incompetence, second trimester (principal); O32.1XX0 Maternal care for breech presentation, not applicable or unspecified; Z86.19 Personal history of other infectious and parasitic diseases; Z88.5 Allergy status to narcotic agent; Z30.09 Encounter for other general counseling and advice on contraception; Z3A.21 21 weeks gestation of pregnancy; Z37.1 Single stillbirth
CPT/HCPCS: 80307; 81001; 84112; 85025; 87086; 87210; 87491; 87591; 88307; G0481; J2590; J3010; J7120

== ENCOUNTER 2018-05-15 17:35 | Emergency (ER) | payer MEDICARE, OTHER ==
[~2018-05-15] VITALS: Ht 165.1 cm; Wt 68.0 kg
[~2018-05-15 17:35] MED LIST changes: +IBUP1TAB7 PO
[2018-05-15 17:38] VITALS: BP 146/74; PULSE 71; RESP 16; TEMP 98.5; O2SAT 97
--- NOTE | 2018-05-15 19:18 | PD ---
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 27-year-old female presents requesting removal of cervical cerclage sutures. She underwent cervical cerclage for cervical incompetency on March 13, [address] Dyer. According to his operative note 2 sutures with 1-0 Prolene were placed. She then had a miscarriage on March 27. According to the notes from March 27 1 of the cerclage stitches were cut and removed. The patient presents complaining that she can still feel a suture in her cervix with her fingers. She reports that her sexual partner can also feel it as well. Symptom onset 2 months ago. Symptoms are aggravated by sexual contact with no leaving factors. She is also having some lower back pain that radiates to the proximal right leg. This is been ongoing for the past few weeks. 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 Pain is worse with movement. Denies any abdominal pain, unusual current vaginal bleeding or discharge, dysuria, flank pain, fevers or chills. PFSH Past Medical History Cancer: No Cardiovascular Problems: No Diabetes: No Diminished Hearing: No Endocrine: No Gastrointestinal Disorders: No Genitourinary: No Hepatitis: No Hiatal Hernia: No Hypertension: No Immune Disorder: No Musculoskeletal: No Neurologic: No Psychiatric: No Respiratory: No Immunizations Current: Yes Thyroid Disease: Yes (problems in past) ?: Not : 4 Para: 0 Miscarriage: 3 Dilation and Curettage (D&C): Yes Past Surgical History Abdominal Surgery: No AICD: No Body Medical Devices: jewlry on face and hip Cardiac Surgery: No Endocrine Surgery: No Eye Surgery: No Genitourinary Surgery: No Gynecologic Surgery: Yes (d & c X 1) Joint Replacement: No Neurologic Surgery: No Pacemaker: No Thoracic Surgery: No Other Surgery: Yes Social History Alcohol Use: No Tobacco Use: Yes Substance Use: No Allergies-Medications (Allergen,Severity, Reaction): Coded Allergies: latex (Unverified Allergy, Mild, Rash, 02/10/18) tramadol (Verified Adverse Reaction, Intermediate, Hives, 03/27/18) Reported Meds & Prescriptions Reported Meds & Active Scripts Active Ibuprofen 800 Mg Tab 800 Mg PO Q8H PRN Scrum Project Manager-Ch-Pnv Softgel ( 34/Iron/Folic/Dss/Dha) 30 Mg Iron-1 Mg-50 Mg-260 Mg Capsule 1 Tab PO DAILY 30 Days Reported Acyclovir 400 Mg Tab Unknown Dose PO DIRECTED Review of Systems Except as stated in HPI: all other systems reviewed are Neg Physical Exam Narrative GENERAL: Well-developed well-nourished female no acute distress SKIN: Warm and dry. HEAD: Atraumatic. Normocephalic. EYES: Pupils equal and round. No scleral icterus. No injection or drainage. ENT: No nasal bleeding or discharge. Mucous membranes pink and moist. NECK: Trachea midline. No JVD. CARDIOVASCULAR: Regular rate and rhythm. No murmur appreciated. RESPIRATORY: No accessory muscle use. Clear to auscultation. Breath sounds equal bilaterally. GASTROINTESTINAL: Abdomen soft, non-tender, nondistended. Hepatic and splenic margins not palpable. There is no CVA tenderness. Pelvic examination in the presence of a female nurse: Suture material is noted still tied into the cervix. Unable to grasp it with forceps. MUSCULOSKELETAL: No obvious deformities. No clubbing. No cyanosis. No edema. There is no tenderness to palpation along the midline lumbar spine. NEUROLOGICAL: Awake and alert. No obvious cranial nerve deficits. Motor grossly within normal limits. Normal speech. PSYCHIATRIC: Appropriate mood and affect; insight and judgment normal. Data Data Last Documented VS Vital Signs Date Time Temp Pulse Resp B/P (MAP) Pulse Ox O2 Delivery O2 Flow Rate FiO2 05/15/18 17:38 98.5 71 16 146/74 (98) 97 Orders Orders Urinalysis - C+S If Indicated (05/15/18 19:25) Ed Urine Pregnancytest Poc (05/15/18 19:25) Ed Discharge Order (05/15/18 20:26) Labs Laboratory Tests Test 05/15/18 19:28 Urine Color YELLOW Urine Turbidity CLEAR Urine pH 5.0 Urine Specific Apollo 1.025 Urine Protein NEG mg/dL Urine Glucose (UA) NEG mg/dL Urine Ketones NEG mg/dL Urine Occult Blood NEG Urine Nitrite NEG Urine Bilirubin NEG Urine Urobilinogen LESS THAN 2 mg/dL Urine Leukocyte Esterase NEG Urine RBC 1 /hpf Urine WBC 4 /hpf Urine Squamous Epithelial Cells 2 /hpf Urine Bacteria RARE /hpf Urine Mucus MOD /lpf Microscopic Urinalysis Comment CULT NOT INDICATED MDM Medical Decision Making Medical Screen Exam Complete: Yes Emergency Medical Condition: Yes Medical Record Reviewed: Yes Differential Diagnosis Cervical cerclage sutures versus dyspareunia versus pelvic inflammatory disease Narrative Course I discussed the case with the on-call OB Dr. Beatty who recommends that the patient follow-up with Dr. Dyer to have the sutures removed. The patient is agreeable to this. 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 Conservative care recommended. Urine test is negative. Urinalysis is not suggestive of infectious. Stable for discharge. Diagnosis Primary Impression: Lower back pain Additional Impression: Visit for pelvic exam Referrals: Jesus Dyer MD Patient Instructions: General Instructions Departure Forms: Tests/Procedures, Work Release Enter return to work date: May 16, 2018 Additional Instructions: As discussed, follow-up with EYE[employer] Dr. Dyer to have your cerclage sutures removed. Call to make appointment. Return for any emergent medical conditions. Med/Other Pt SpecificInfo: No Change to Meds Disposition: 01 DISCHARGE HOME Condition: Stable Julio Florentino May 15, 2018 19:18
[2018-05-15 20:20] LABS: BACTERIA, URINE RARE /hpf; BILIRUBIN, URINE NEG (NEG); BLOOD, URINE NEG (NEG); GLUCOSE,URINE NEG (NEG); KETONE, URINE NEG (NEG); MUCUS URINE MOD /lpf (OCC); NITRITE,URINE NEG (NEG); SQUAMOUS EPITHELIAL CELL URINE 2 /hpf (0-5); URINE COLOR YELLOW (YELLW/STRAW); URINE LEUKOCYTE ESTERASE NEG (NEG)
== END 2018-05-15 20:34 | disposition home or self-care (01) ==
LOC: NEPD 17:35
DX: M54.5 Low back pain (principal); T81.598A Other complications of foreign body accidentally left in body following other procedure, initial encounter; N88.8 Other specified noninflammatory disorders of cervix uteri; E07.9 Disorder of thyroid, unspecified; Z72.0 Tobacco use
CPT/HCPCS: 81001; 84703; 99283